=== PATIENT | female | born 1975 ===

== ENCOUNTER 2021-06-15 12:44 | Emergency (ER) | payer MEDICARE, SELFPAY ==
--- NOTE | ~2021-06-15 | XR_ITS ---
EXAMINATION: XR CHEST CLINICAL INFORMATION: Cough and chest tightness. COMPARISON: Chest 07/24/2019 TECHNIQUE: 2 views of the chest were obtained. FINDINGS: No significant abnormality is noted involving the heart, lungs, mediastinum, bony thorax or soft tissues. XR/XR chest 2V IMPRESSION: Unremarkable chest examination.
[2021-06-15 12:58] VITALS: BP 165/108; PULSE 88; RESP 16; TEMP 37.1; O2SAT 96; BMI 35.9
--- NOTE | 2021-06-15 15:15 | ED.URI ---
HPI - URI/Sore Throat General Chief Complaint: Upper Respiratory Symptoms Stated Complaint: flu like Time Seen by Provider: 06/15/21 13:48 History of Present Illness HPI Narrative: Patient complains of cough, chest tightness, body aches and some fatigue for 5 days, no shortness of breath no difficulty breathing no nausea or vomiting no fever chills Related Data Previous Rx's Medication Instructions Recorded albuterol sulfate 90 mcg/actuation 2 puff INHALATION Q4-6H PRN #6.7 g 06/15/21 aerosol inhaler (ProAir HFA) azithromycin 250 mg tablet 250 mg PO DAILY 5 Days #6 tab 06/15/21 (Zithromax Z-Roberto) prednisone 20 mg tablet 60 mg PO DAILY 3 Days #9 tab 06/15/21 Allergies Allergy/AdvReac Type Severity Reaction Status Date / Time No Known Allergies Allergy Unknown Verified 06/15/21 13:00 Review of Systems Review of Systems: Positive for cough fatigue and body aches Negatives are no fever no chills no dizziness no weakness no headache no neck pain no sore throat no chest pain no difficulty breathing no abdominal pain no nausea vomiting or diarrhea no dysuria no skin rash Yes all other systems are reviewed and are negative PMFSH Past Medical History Source: nursing notes reviewed Medical History (Updated 06/15/21 @ 15:19 by AMANDA Godinez) No known health problems Social History Social History Advance Directives: No Advance Directives Information Provided: Yes Patient : No Physical Exam Vital Signs: Vital Signs: Last Vital Signs Temp 98.7 F 06/15/21 12:58 Pulse 88 06/15/21 12:58 Resp 16 06/15/21 12:58 BP 165/108 H 06/15/21 12:58 Pulse Ox 96 06/15/21 12:58 Body Mass Index 35.9 General appearance is no acute distress The pharynx is clear Neck is supple Chest there is mild bilateral wheezing, good air movement, breath sounds do not have prolonged expiration, breath sounds are full and equal Heart no murmur The abdomen soft nontender Extremities no edema no calf tenderness no calf swelling Skin no rashes Course Course Course Narrative: Chest x-ray was negative Patient with mild wheezing is treated with prednisone and antibiotic for possible bronchitis and is well-appearing and is discharged COVID testing was negative MDM - URI/Sore Throat Lab Data Labs: Lab Results 06/15/21 Range/Units 14:09 Coronavirus (PCR) NEGATIVE (Negative) Influenza Type A (PCR) NEGATIVE (Negative) Influenza Type B (PCR) NEGATIVE (Negative) RSV RNA Qual (PCR) NEGATIVE (Negative) Discharge Plan Discharge Clinical Impression: Bronchitis Patient Disposition: Home, Self-Care Additional Instructions: We will call you with COVID test results later today at [phone] Your chest x-ray was normal We are treating bronchitis with antibiotic Zithromax If you feel chest tightness or shortness of breath use albuterol inhaler, we are doing several days of prednisone as well Return to the ER any time any worse condition or any concerns Prescriptions: New prednisone 20 mg tablet 60 mg PO DAILY 3 Days Qty: 9 RF: 0 albuterol sulfate [ProAir HFA] 90 mcg/actuation HFA aerosol inhaler 2 puff inhalation Q4-6H PRN (Reason: shortness of breath or wheezing) Qty: 6.7 RF: 0 azithromycin [Zithromax Z-Roberto] 250 mg tablet 250 mg PO DAILY 5 Days Qty: 6 RF: 0 Stand Alone Forms: Work/School Release Interventions: ED Discharge Assessment Last Done: 06/15/21 15:56 Discharge Date/Time: 06/15/21 15:57
[2021-06-15 15:27] LABS: Influenza A PCR NEGATIVE (Negative); Influenza B PCR NEGATIVE (Negative); Resp Syncy Virus RNA Qual PCR NEGATIVE (Negative); SARS COV2 PCR INHOUSE NEGATIVE (Negative)
== END 2021-06-15 15:57 | disposition home or self-care (01) ==
PROVIDERS: Physician Assistant; Emergency Provider Emergency Medicine; PCP Internal Medicine
DX: J40 Bronchitis, not specified as acute or chronic (principal); Z20.822 Contact with and (suspected) exposure to COVID-19; R53.83 Other fatigue; M79.10 Myalgia, unspecified site
CPT/HCPCS: 0241U; 36415; 71046; 99283

== ENCOUNTER 2021-10-26 16:33 | Emergency (ER) | payer MEDICARE, SELFPAY | END 2021-10-26 22:29 | disposition left against medical advice (07) | PROVIDERS: Emergency Provider Emergency Medicine; PCP Internal Medicine | DX: J02.9 Acute pharyngitis, unspecified (principal) ==

== ENCOUNTER 2022-05-30 16:38 | Emergency (ER) | payer MEDICARE, SELFPAY ==
[2022-05-30 16:49] VITALS: BP 172/102; PULSE 83; RESP 18; TEMP 36.8; O2SAT 100; BMI 37.2
--- NOTE | 2022-05-30 17:50 | ED.DENTAL ---
HPI - Dental/Oral General Chief complaint: Dental/Oral Stated complaint: tooth pain Time Seen by Provider: 05/30/22 17:49 History of Present Illness HPI Narrative: Patient complains of right upper molar pain which she has had for several weeks, her doctor referred her to an oral surgeon for root canal which is scheduled next week, she is taking amoxicillin but pain is still severe No trouble breathing or swallowing there is no swelling under the tongue no fever Related Data Previous Rx's Medication Instructions Recorded albuterol sulfate 90 mcg/actuation 2 puff inhalation Q4-6H PRN 06/15/21 aerosol inhaler (ProAir HFA) shortness of breath or wheezing #6.7 grams azithromycin 250 mg tablet 250 mg PO DAILY 5 days #6 tabs 06/15/21 (Zithromax Z-Roberto) prednisone 20 mg tablet 60 mg PO DAILY 3 days #9 tabs 06/15/21 acetaminophen 500 mg tablet 1,000 mg PO QID PRN pain #30 tabs 05/30/22 amoxicillin 875 mg-potassium 1 tab PO BID 7 days #14 tabs 05/30/22 clavulanate 125 mg tablet ibuprofen 600 mg tablet 600 mg PO Q6H PRN pain #20 tabs 05/30/22 oxycodone 10 mg tablet 10 mg PO Q6H PRN pain #14 tabs 05/30/22 Allergies Allergy/AdvReac Type Severity Reaction Status Date / Time No Known Allergies Allergy Unknown Verified 06/15/21 13:00 Review of Systems Review of Systems: Positive for right upper dental pain Negatives are no fever no chills no headache no dizziness no difficulty breathing or swallowing no swelling under the tongue denies any facial swelling denies any rash no sore throat no neck pain no chest pain no shortness of breath Yes all other systems are reviewed and are negative PMFSH Past Medical History Source: nursing notes reviewed Medical History (Updated 05/31/22 @ 00:02 by Aleks Dadarrel) No known health problems Social History Social History Advance Directives: No Advance Directives Information Provided: No Physical Exam Vital Signs: Vital Signs: Last Vital Signs Temp 98.2 F 05/30/22 16:49 Pulse 83 05/30/22 16:49 Resp 18 05/30/22 16:49 BP 172/102 H 05/30/22 16:49 Pulse Ox 100 05/30/22 16:49 O2 Del Method 05/30/22 16:49 BMI result Body Mass Index 37.2 General appearance no acute distress The head is normocephalic atraumatic The ears no redness or canal narrowing bilaterally, tympanic membranes intact Facial exam there is no redness or facial swelling Dental exam there is tenderness to the right upper molar which is decayed, there is no fluctuant abscess on the gum there is no swelling under the tongue there is no impairment of breathing or swallowing Pharynx no redness swelling or exudate, mucous membranes are moist Neck is supple Respiratory no distress Extremities full range of motion x4 Skin no rash Course Course Course Narrative: Well-appearing patient with a toothache, scheduled for extraction with oral surgeon next week is discharged with antibiotic and pain medicine Discharge Plan Discharge Clinical Impression: Dental caries Patient Disposition: Home, Self-Care Additional Instructions: Follow as scheduled for your root canal Return any time for fever, worse swelling, any difficulty breathing or swallowing, any worse condition or concerns Call the oral surgeon's office every day as they may have a cancellation and be able to get you in there before your appointment Prescriptions: New acetaminophen 500 mg tablet 1,000 mg PO QID PRN (Reason: pain) Qty: 30 0RF oxycodone 10 mg tablet 10 mg PO Q6H PRN (Reason: pain) Qty: 14 0RF Rx Instructions: Partial Fill upon patient request. Narcotic, no driving for 6 hours after taking this medication amoxicillin-pot clavulanate 875-125 mg tablet 1 tab PO BID 7 Days Qty: 14 0RF ibuprofen 600 mg tablet 600 mg PO Q6H PRN (Reason: pain) Qty: 20 0RF No Action prednisone 20 mg tablet 60 mg PO DAILY 3 Days Qty: 9 0RF albuterol sulfate [ProAir HFA] 90 mcg/actuation HFA aerosol inhaler 2 puff inhalation Q4-6H PRN (Reason: shortness of breath or wheezing) Qty: 6.7 0RF azithromycin [Zithromax Z-Roberto] 250 mg tablet 250 mg PO DAILY 5 Days Qty: 6 0RF Rx Instructions: Two tablets 1st dose, 500 mg followed by 1 tablet 250 mg a day for 4 days Interventions: ED Discharge Assessment Last Done: 05/30/22 18:07 Discharge Date/Time: 05/30/22 18:09
== END 2022-05-30 18:09 | disposition home or self-care (01) ==
PROVIDERS: Emergency Provider Internal Medicine
DX: K02.9 Dental caries, unspecified (principal); K08.89 Other specified disorders of teeth and supporting structures
CPT/HCPCS: 99282; 99283

== ENCOUNTER → 2022-08-21 12:34 | Outpatient (BNVA) | payer OTHER, SELFPAY | PROVIDERS: Visit Provider Dietitian, Registered | DX: E66.9 Obesity, unspecified (principal); Z68.37 Body mass index [BMI] 37.0-37.9, adult | CPT/HCPCS: 97802 ==

== ENCOUNTER → 2022-12-01 12:30 | Outpatient (BNVA) | payer OTHER, SELFPAY | PROVIDERS: PCP Physician Assistant; Visit Provider Dietitian, Registered | DX: E66.9 Obesity, unspecified (principal); Z68.34 Body mass index [BMI] 34.0-34.9, adult | CPT/HCPCS: 97803 ==

== ENCOUNTER 2024-03-09 11:09 | Emergency (ER) | payer OTHER, SELFPAY ==
--- NOTE | ~2024-03-09 | XR_ITS ---
EXAMINATION: XR CHEST 2 VIEW CLINICAL INFORMATION: Cough COMPARISON: 06/15/2021 TECHNIQUE: PA and lateral views of the chest obtained. FINDINGS: The lungs are clear. There are no pleural effusions. The cardiomediastinal silhouette is normal. XR/XR chest 2V IMPRESSION: No acute cardiopulmonary disease.
[2024-03-09 12:00] VITALS: BP 149/92; PULSE 106; RESP 18; TEMP 36.5; O2SAT 96; BMI 36.4
[2024-03-09 12:59] LABS: Influenza A PCR NEGATIVE (Negative); Influenza B PCR NEGATIVE (Negative); Resp Syncy Virus RNA Qual PCR NEGATIVE (Negative); SARS COV2 PCR INHOUSE NEGATIVE (Negative)
--- NOTE | 2024-03-09 14:40 | ED.GENADULT ---
HPI - General Adult General Chief complaint: Upper Respiratory Symptoms Stated complaint: SOB/Fever/Vomiting/Cough Time Seen by Provider: 03/09/24 14:39 Source: patient and site interpreter (all interactions with this patient were facilitated with an [facility] [place] sign language interpreter) Mode of arrival: ambulatory Limitations: language barrier (all interactions with this patient were facilitated with an [facility] [place] sign language interpreter) History of Present Illness HPI narrative: Patient is a 48 year old assigned female at with a history of DM presenting to the emergency department today with cough and nasal congestion. Patient states that over the last 4 days she has had nasal congestion and worsening cough. Patient denies any dizziness, lightheadedness, abdominal pain, nausea, vomiting, fever, chills, blurry vision, double vision, loss of vision, chest pain, difficulty breathing, shortness of breath, back pain, night sweats, pain with urination, increased urinary frequency, increased urinary urgency, blood in her urine or stool, syncope or a near syncopal episode, recent trauma or falls, bowel incontinence, bladder incontinence, bowel retention, bladder retention, or any other complaints at this time. Onset (ago): day(s) (4) Severity: mild Severity scale (1-10): 4 Relieving factors: none Exacerbating factors: none Associated symptoms: cough Treatments prior to arrival: other (OTC cold medicine) Related Data Previous Rx's ?Medication ?Instructions ?Recorded albuterol sulfate 90 mcg/actuation 2 puff inhalation Q4-6H PRN 06/15/21 aerosol inhaler (ProAir HFA) shortness of breath or wheezing #6.7 grams azithromycin 250 mg tablet 250 mg PO DAILY 5 days #6 tabs 06/15/21 (Zithromax Z-Roberto) prednisone 20 mg tablet 60 mg (3 x 20 mg) PO DAILY 3 days 06/15/21 #9 tabs acetaminophen 500 mg tablet 1,000 mg (2 x 500 mg) PO QID PRN 05/30/22 pain #30 tabs amoxicillin 875 mg-potassium 1 tab PO BID 7 days #14 tabs 05/30/22 clavulanate 125 mg tablet ibuprofen 600 mg tablet 600 mg PO Q6H PRN pain #20 tabs 05/30/22 oxycodone 10 mg tablet 10 mg PO Q6H PRN pain #14 tabs 05/30/22 albuterol sulfate 90 mcg/actuation 1 inh inhalation QID PRN shortness 03/09/24 aerosol inhaler of breath or wheezing #8.5 grams benzonatate 100 mg capsule 100 mg PO BID PRN cough 7 days #14 03/09/24 caps doxycycline hyclate 100 mg tablet 100 mg PO BID 7 days #14 tabs 03/09/24 Allergies Allergy/AdvReac Type Severity Reaction Status Date / Time No Known Allergies Allergy Unknown Verified 03/09/24 12:01 Review of Systems Constitutional: Constitutional: Reports no additional constitutional complaints, Denies chills, Denies fever(s) and Denies night sweats Eyes: Eyes: Reports no additional eye complaints, Denies blurry vision, Denies change in vision, Denies diplopia, Denies eye discharge, Denies loss of vision and Denies eye pain ENT: Denies dizziness Comments: nasal congestion Cardiovascular: Cardiovascular: Reports no additional cardiovascular complaints, Denies chest pain, Denies lightheadedness, Denies Loss of Consciousness and Denies dyspnea Respiratory: Respiratory: Reports no additional respiratory complaints, Reports cough and Denies dyspnea Gastrointestinal: Gastrointestinal: Reports no additional gastrointestinal complaints, Denies abdominal pain, Denies melena, Denies hematochezia, Denies change in bowel habits and Denies change in stool character Genitourinary: Genitourinary: Denies hematuria, Denies urinary frequency, Denies dysuria, Denies urinary incontinence, Denies urinary hesitancy and Denies urinary urgency Musculoskeletal: Musculoskeletal: Reports no additional musculoskeletal complaints, Denies numbness and Denies tingling Neurologic: Denies dizziness, Denies loss of vision, Denies numbness and Denies tingling Psychiatric: Psychiatric: Reports no additional psychiatric complaints Endocrine: Endocrine: Reports no additional endocrine complaints Hematologic/Lymphatic: Hematologic/Lymphatic: Reports no additional hematologic/lymphatic complaints Allergic/Immunologic: Allergic/Immunologic: Reports no additional allergic/immunologic complaints PMFSH Past Medical History Attestation statement: The following information was validated with the patient. Source: old records reviewed and nursing notes reviewed Medical History No known health problems Social History Social History Advance Directives: No Advance Directives Information Provided: No Do you have a plan to hurt others: No Plan Physical Exam ED Vital Signs: Vital Signs - 24 hr 03/09/24 15:03 Temperature 97.7 F Pulse Rate 106 H Respiratory Rate 18 Blood Pressure 149/92 H Pulse Oximetry 96 Oxygen Delivery Method Room Air BMI result Body Mass Index 36.4 Const General: cooperative, no acute distress, alert and awake Nutritional Appearance: well nourished Orientation/consciousness: patient oriented x3 Limitations: no limitations HENMT Head: Yes normal to inspection and Yes atraumatic Ears: hearing grossly normal bilaterally and external ears normal General nose exam: Normal external nose present, no nasal discharge noted and no epistaxis Face and sinus: Yes normal facial exam, No abrasion and No laceration Mouth: Normal oral and palatal mucosa present, no drooling and no muffled voice Eyes General: appearance normal, both eyes and all related structures Periorbital: periorbital findings normal Eyelids: Yes eyelids normal Conjunctivae: conjunctivae normal Pupils: Equal, round and reactive pupils present EOM: EOMs intact bilaterally Neck Neck: Yes normal visual inspection, Yes full ROM and Yes no lymphadenopathy Chest Chest palpation & inspection: normal inspection of the chest Resp Effort & Inspection: normal respiratory effort and able to speak in complete sentences GI Inspection: Yes normal to inspection Neuro General: patient oriented x3 and moves all extremities Cranial nerves: Yes Equal, round and reactive pupils present Cognition (Neuro): normal cognition Motor exam (neuro): 5/5 motor strength present throughout Sensory Exam: Normal double simultaneous stimulation for sensation Coordination: [id number] test normal Extrem General: Yes normal to inspection, Yes full ROM and Yes capillary refill normal Psych Appearance: grossly normal Mental Status: mental status grossly normal Affect: normal affect Attitude: cooperative Thought process: Normal thought process present Thought content: Normal thought content present Insight: Good insight present (Psych) Medical Decision Making Medical Decision Making MDM Narrative: Patient is a 48 year old assigned female at with a history of DM presenting to the emergency department today with nasal congestion and a cough. Patient's physical exam was unremarkable. Patient's COVID-19, influenza, and RSV tests were negative. Patient's chest x-ray showed no acute process. I explained my physical exam findings as well as all test results to the patient. I answered all questions asked by the patient. I stressed the importance of the patient taking her medication as prescribed. I stressed the importance of the patient following up with her primary care provider. I stressed the importance of the patient returning to the emergency department immediately if her symptoms were to worsen or if she were to develop any dizziness, shortness of breath, difficulty breathing, chest pain, blurry vision, loss of vision, nausea, vomiting, abdominal pain, fever, chills, back pain, or any other complaints. Patient verbalized agreement and understanding with this treatment plan and discharge. Differential Diagnosis Differential Diagnoses: The differential diagnosis associated with the presentation includes Nasal congestion Cough URI Sinusitis Viral illness COVID-19 Influenza RSV Admission/Observation Consideration of admission/observation: Escalation of care including admission/observation considered Patient would have been admitted to the hospital had her work up had any findings where hospital admission was appropriate and her clinical presentation warranted hospital admission. Lab Data MDM Lab Attestation statement: I reviewed the patient's lab results. My interpretation of these studies and their corresponding values is that they are grossly normal. Labs: Lab Results 03/09/24 Range/Units 12:18 Influenza Type A (PCR) NEGATIVE (Negative) Influenza Type B (PCR) NEGATIVE (Negative) RSV RNA Qual (PCR) NEGATIVE (Negative) SARS-CoV-2 RNA (RT-PCR) NEGATIVE (Negative) Independent Interpretation I performed an independent interpretation of an: Plain X-Ray Interpretation: My interpretation is in agreement with the radiologist's impression of this imaging study. EXAMINATION: XR CHEST 2 VIEW CLINICAL INFORMATION: Cough COMPARISON: 06/15/2021 TECHNIQUE: PA and lateral views of the chest obtained. FINDINGS: The lungs are clear. There are no pleural effusions. The cardiomediastinal silhouette is normal. XR/XR chest 2V IMPRESSION: No acute cardiopulmonary disease. Dictated By: Jaciel Hinkle MD Signed By: Electronically signed by Jaciel Hinkle MD 03/09/24 1218 Radiology Impression Discussion of test interpretation with radiology: I have reviewed the radiologist's reading. Prescription Management I considered prescription management with: Antibiotic (given patient's comorbidities and clinical presentation - prescribed an antibiotic for sinusitis) Chronic Conditions Patient?s care impacted by: Diabetes Discharge Plan Discharge Clinical Impression: Upper respiratory infection, Sinusitis Patient Disposition: Home, Self-Care Instructions: Sinusitis (ED), Upper Respiratory Infection (DC) Additional Instructions: Take your medication as prescribed. Follow up with your primary care provider. Return to the emergency department immediately if your symptoms worsen or if you develop any dizziness, shortness of breath, difficulty breathing, chest pain, blurry vision, loss of vision, nausea, vomiting, abdominal pain, fever, chills, back pain, or any other complaints. Prescriptions: New benzonatate 100 mg capsule 100 mg PO BID PRN (Reason: cough) 7 Days Qty: 14 0RF doxycycline hyclate 100 mg tablet 100 mg PO BID 7 Days Qty: 14 0RF albuterol sulfate 90 mcg/actuation HFA aerosol inhaler 1 inh inhalation QID PRN (Reason: shortness of breath or wheezing) Qty: 8.5 0RF No Action prednisone 20 mg tablet 60 mg PO DAILY 3 Days Qty: 9 0RF albuterol sulfate [ProAir HFA] 90 mcg/actuation HFA aerosol inhaler 2 puff inhalation Q4-6H PRN (Reason: shortness of breath or wheezing) Qty: 6.7 0RF azithromycin [Zithromax Z-Roberto] 250 mg tablet 250 mg PO DAILY 5 Days Qty: 6 0RF Rx Instructions: Two tablets 1st dose, 500 mg followed by 1 tablet 250 mg a day for 4 days acetaminophen 500 mg tablet 1,000 mg PO QID PRN (Reason: pain) Qty: 30 0RF oxycodone 10 mg tablet 10 mg PO Q6H PRN (Reason: pain) Qty: 14 0RF Rx Instructions: Partial Fill upon patient request. Narcotic, no driving for 6 hours after taking this medication amoxicillin-pot clavulanate 875-125 mg tablet 1 tab PO BID 7 Days Qty: 14 0RF ibuprofen 600 mg tablet 600 mg PO Q6H PRN (Reason: pain) Qty: 20 0RF Referrals: [facility] [place] [facility] [Provider Group] (Call to establish and follow up with a primary care provider. If you already have a primary care provider, please follow up with them.) [facility] [place] [facility] [Provider Group] [facility] [place] [facility] [Provider Group] Stand Alone Forms: Work/School Release Interventions: ED Discharge Assessment Last Done: 03/09/24 15:03 Discharge Date/Time: 03/09/24 15:04 Print Language: Kinyarwanda
[2024-03-09 15:03] VITALS: BP 149/92; PULSE 106; RESP 18; TEMP 36.5; O2SAT 96
== END 2024-03-09 15:04 | disposition home or self-care (01) ==
PROVIDERS: Emergency Provider Emergency Medicine
DX: J06.9 Acute upper respiratory infection, unspecified (principal); R06.02 Shortness of breath; R05.9 Cough, unspecified; R11.2 Nausea with vomiting, unspecified; Z11.52 Encounter for screening for COVID-19; Z20.822 Contact with and (suspected) exposure to COVID-19; Z79.899 Other long term (current) drug therapy
CPT/HCPCS: 0241U; 71046; 99283; 99284

== ENCOUNTER 2024-06-03 23:11 | Day surgery (SDC) | payer OTHER, SELFPAY ==
--- NOTE | ~2024-06-03 | US_ITS ---
EXAMINATION: US ABDOMEN LIMITED CLINICAL INFORMATION: Right upper quadrant pain and tenderness. COMPARISON: 05/21/2020 TECHNIQUE: Real-time imaging of the right upper quadrant abdominal viscera. FINDINGS: PANCREAS: The visualized proximal portion of the pancreas is unremarkable. The distal portion is obscured secondary to overlying bowel gas. LIVER: The liver is normal in size. The liver contour is normal. There is increased liver parenchymal echogenicity, consistent with hepatic steatosis with focal sparing noted. No focal hepatic lesion. There is no intrahepatic biliary duct dilatation seen. GALLBLADDER: Gallbladder is physiologically distended. A proximal gallstone is identified in the region of the neck, possibly impacted. Gallbladder wall thickness is within normal limits. No pericholecystic fluid is seen. Per technologist report, right upper quadrant tenderness was reported during the exam. COMMON BILE DUCT: Normal in caliber measuring 0.4 cm in diameter. RIGHT KIDNEY: No hydronephrosis. No renal calculi or focal parenchymal lesions. The kidney measures 11.5 cm in maximum dimension. FREE FLUID: None. US/US abdomen limited IMPRESSION: 1. Cholelithiasis without gallbladder wall thickening, though right upper quadrant tenderness was reported during the exam. The gallstone at the neck may be impacted, and if clinically warranted, nuclear medicine hepatobiliary scan may provide more specific evaluation for potential cholecystitis. 2. Hepatic steatosis.
[2024-06-03 23:19] VITALS: BP 148/93; PULSE 80; RESP 16; TEMP 36.2; O2SAT 99; BMI 35.4
[2024-06-03 23:40] LABS: MANUAL DIFF FLAG NO
[2024-06-03 23:42] LABS: Basophils Absolute Auto 0.1 X10*3/uL (0.0-0.2); Basophils Percent Auto 0.5 % (0-2); Eosinophils Absolute Auto 0.1 X10*3/uL (0.0-0.4); Hemoglobin 12.6 g/dl (12.0-16.0); Imm Gran Abs Auto 0.03 X10*3/uL (0.00-0.03); Imm Gran Pct Auto 0.3 % (0.0-0.4); Lymphocytes Percent Auto 43.1 % (20-40); Mean Corpuscular HGB Conc 34.1 g/dl (31.0-35.0); Mean Corpuscular Hemoglobin 29.7 pg (27.0-33.0); Mean Corpuscular Volume 87.3 fL (80.0-98.0); Mean Platelet Volume 9.7 fL (9.4-12.3); Monocytes Absolute Auto 0.6 X10*3/uL (0.1-1.2); Monocytes Percent Auto 5.3 % (2-11); Neutrophils Absolute Auto 5.8 x10*3/uL (2.0-8.3); Neutrophils Percent Auto 49.8 % (45-73); Platelet Count 295 X10*3/uL (160-400); Red Blood Count 4.24 X10*6/uL (4.20-5.50); Red Cell Distribution Width 13.2 % (11.0-16.0); White Blood Count 11.6 X10*3/uL (4.8-10.8)
[2024-06-03 23:47] LABS: Appearance Urine Clear; Color Urine Yellow; Glucose Urine UA Negative (Negative); Leukocyte Esterase Urine Negative (Negative); Nitrite Urine Negative (Negative); PH 5.5 (5.0-9.0); Specific Gravity - Urine 1.025 (1.005-1.025); Urine Blood Negative (Negative); Urine Ketones Negative (Negative); Urine Protein Negative (Neg-Trace)
[2024-06-03 23:49] LABS: Bacteria Urine Trace (None Seen); Hyaline Casts Urine 0-2 /LPF (0-2); RBC Urine 0-2 /HPF (0-2); WBC Urine 0-5 /HPF (0-5)
[2024-06-04] VITALS (11 sets, daily range): BP systolic 126–159; BP diastolic 71–101; PULSE 71–85; RESP 12–18; TEMP 36.2–36.9; O2SAT 85–98
[2024-06-04 00:07] LABS: Alanine Aminotransferase 17 U/L (0-31); Albumin Level 4.2 g/dL (3.5-5.0); Alkaline Phosphatase 71 U/L (39-117); Anion Gap 13 (12-20); Aspartate Amino Transferase 13 U/L (5-31); Bilirubin Total 0.5 mg/dL (0.0-1.0); Blood Urea Nitrogen 17 mg/dL (9-16); Calcium 9.1 mg/dL (8.4-10.2); Carbon Dioxide 24 mmol/L (22-29); Chloride 108 mmol/L (96-108); Estimated Glomerular Filt Rate > 60; Glucose Random 167 mg/dL (60-115); Lipase 21 U/L (8-78); Potassium 3.6 mmol/L (3.3-5.1); Sodium 141 mmol/L (135-145); Total Protein 7.1 g/dL (6.5-8.0)
--- NOTE | 2024-06-04 04:02 | ED.GENADULT ---
HPI - General Adult General Chief complaint: Abdominal Pain Stated complaint: rt flank pain x 5 days Time Seen by Provider: 06/04/24 04:02 History of Present Illness ED Provider: Suhail DAVILA narrative: The patient is a 48-year-old woman who has had right-sided pain for about 4 or 5 days. She says the pain began on Thursday. The pain is worse when she takes a deep breath. She has also had some nausea and decreased oral intake because of lack of appetite. Doctor's office and says she had a negative chest x-ray. She comes to the emergency room because of the persistence of this pain. No definite fever, sweats, chills. The patient has a history of hysterectomy. Related Data Previous Rx's ?Medication ?Instructions ?Recorded albuterol sulfate 90 mcg/actuation 2 puff inhalation Q4-6H PRN 06/15/21 aerosol inhaler (ProAir HFA) shortness of breath or wheezing #6.7 grams azithromycin 250 mg tablet 250 mg PO DAILY 5 days #6 tabs 06/15/21 (Zithromax Z-Roberto) prednisone 20 mg tablet 60 mg (3 x 20 mg) PO DAILY 3 days 06/15/21 #9 tabs acetaminophen 500 mg tablet 1,000 mg (2 x 500 mg) PO QID PRN 05/30/22 pain #30 tabs amoxicillin 875 mg-potassium 1 tab PO BID 7 days #14 tabs 05/30/22 clavulanate 125 mg tablet ibuprofen 600 mg tablet 600 mg PO Q6H PRN pain #20 tabs 05/30/22 oxycodone 10 mg tablet 10 mg PO Q6H PRN pain #14 tabs 05/30/22 albuterol sulfate 90 mcg/actuation 1 inh inhalation QID PRN shortness 03/09/24 aerosol inhaler of breath or wheezing #8.5 grams benzonatate 100 mg capsule 100 mg PO BID PRN cough 7 days #14 03/09/24 caps doxycycline hyclate 100 mg tablet 100 mg PO BID 7 days #14 tabs 03/09/24 Allergies Allergy/AdvReac Type Severity Reaction Status Date / Time No Known Allergies Allergy Unknown Verified 06/03/24 23:20 Review of Systems Review of Systems: Yes all other systems are reviewed and are negative [facility] Past Medical History Medical History No known health problems Social History Social History Smoked in Last 30 Days: No Use of substances other than those prescribed or required for medical reasons: Yes Substance Use Type: Marijuana Advance Directives: No Advance Directives Information Provided: Yes Do you have a plan to hurt others: No Plan Patient : No Physical Exam ED Vital Signs: Vital Signs - 24 hr 06/03/24 23:19 06/04/24 02:29 06/04/24 05:33 Temperature 97.1 F 98.1 F 98.4 F Pulse Rate 80 77 71 Respiratory Rate 16 16 16 Blood Pressure 148/93 H 126/71 139/93 H Pulse Oximetry 99 97 98 Oxygen Delivery Method Room Air Room Air Room Air 06/04/24 06:00 Temperature 97.9 F Pulse Rate 80 Respiratory Rate 18 Blood Pressure 134/101 H Pulse Oximetry 98 Oxygen Delivery Method Room Air BMI result Body Mass Index 35.4 Const Other: The patient is awake and alert, pleasant and cooperative. She looks mildly uncomfortable but not acutely toxic. HENMT Other: Face is symmetrical, mucous membranes moist. Eyes Other: Pupils are round equal, conjunctivae are clear, extraocular movements intact Neck Neck: Yes no JVD Resp Effort & Inspection: normal respiratory effort Auscultation: clear to auscultation bilaterally Cardio Rate: regular rate Rhythm: regular rhythm Heart sounds: S1 normal heart sound present and S2 normal heart sound present GI Other: The patient is tender in the right upper quadrant with possible Carmen's sign Back/Spine/Pelvis Other: No CVA percussion tenderness Skin Other: Skin is dry and unremarkable Neuro Other: The patient is awake and alert with a normal mental status. Cranial nerves are grossly intact. She moves all 4 extremities symmetrically and appropriately. Gait is normal. She is grossly neurologically intact. Extrem Other: No peripheral edema, no calf swelling or tenderness, no asymmetry Medications Administered Discontinued Medications Generic Name Dose Route Start Last Admin Trade Name Freq PRN Reason Stop Dose Admin Sodium Chloride 1,000 mls @ 999 mls/hr 06/04/24 06:30 06/04/24 06:52 Ns IV 06/04/24 07:30 999 mls/hr .Q1H1M SOPHIA Administration Morphine Sulfate 4 mg 06/04/24 06:29 06/04/24 06:50 Morphine Sulfate 4 Mg/Ml Cartridge IVPUSH 06/04/24 06:30 4 mg ONCE ONE Administration Protocol Medical Decision Making Medical Decision Making [facility] Narrative: The patient is 48-year-old woman who presents with right-sided pain that has been present for about 4 or 5 days. She indicates the pain being essentially at the border between the abdomen and then the thorax on the right side anteriorly. She has an unremarkable EKG, negative troponin, undetectable D-dimer. CRP is normal, On exam she seemed tender in the right upper quadrant. An ultrasound was obtained that seems to show an impacted, nonmobile gallstone in the neck of the gallbladder associated with a sonographic Carmen's sign. I consulted Dr. Roper of General surgery and the patient will be admitted to the surgical service. Lab Data 06/03/24 23:35 06/03/24 23:35 Labs: Lab Results 06/03/24 06/03/24 06/04/24 Range/Units 23:35 23:41 05:26 WBC 11.6 H (4.8-10.8) X10*3/uL RBC 4.24 (4.20-5.50) X10*6/uL Hgb 12.6 (12.0-16.0) g/dl Hct 37.0 (37.0-47.0) % MCV 87.3 (80.0-98.0) fL MCH 29.7 (27.0-33.0) pg MCHC 34.1 (31.0-35.0) g/dl RDW 13.2 (11.0-16.0) % Plt Count 295 (160-400) X10*3/uL MPV 9.7 (9.4-12.3) fL Immature Gran % (Auto) 0.3 (0.0-0.4) % Neut % (Auto) 49.8 (45-73) % Lymph % (Auto) 43.1 H (20-40) % [place] % (Auto) 5.3 (2-11) % Eos % (Auto) 1.0 (0-4) % Baso % (Auto) 0.5 (0-2) % Lymph # (Auto) 5.0 H (1.2-4.9) X10*3/uL [place] # (Auto) 0.6 (0.1-1.2) X10*3/uL Eos # (Auto) 0.1 (0.0-0.4) X10*3/uL Baso # (Auto) 0.1 (0.0-0.2) X10*3/uL Abs Immat Gran (auto) 0.03 (0.00-0.03) X10*3/uL Absolute Neuts (auto) 5.8 (2.0-8.3) x10*3/uL Absolute Nucleated RBC 0.000 (0.0-0.012) X10*3/uL Nucleated RBC % (auto) 0.0 (0.0-0.2) /100WBC D-Dimer High Sensitivty < 150 NG/ML Sodium 141 (135-145) mmol/L Potassium 3.6 (3.3-5.1) mmol/L Chloride 108 (96-108) mmol/L Carbon Dioxide 24 (22-29) mmol/L Anion Gap 13 (12-20) BUN 17 H (9-16) mg/dL Creatinine 0.72 (0.5-1.4) mg/dL Estim Creat Clear Calc 101.0 Estimated GFR > 60 Random Glucose 167 H (60-115) mg/dL Calcium 9.1 (8.4-10.2) mg/dL Total Bilirubin 0.5 (0.0-1.0) mg/dL AST 13 (5-31) U/L ALT 17 (0-31) U/L Alkaline Phosphatase 71 (39-117) U/L Troponin I High Sens < 2.7 (<3.5-17.0) ng/L C-Reactive Protein 0.47 (< or = 0.50) mg/dL Total Protein 7.1 (6.5-8.0) g/dL Albumin 4.2 (3.5-5.0) g/dL Lipase 21 (8-78) U/L Urine Color Yellow Urine Appearance Clear Urine pH 5.5 (5.0-9.0) Ur Specific [place] 1.025 (1.005-1.025) Urine Protein Negative (Neg-Trace) mg/dL Urine Glucose (UA) Negative (Negative) mg/dL Urine Ketones Negative (Negative) mg/dL Urine Blood Negative (Negative) Urine Nitrite Negative (Negative) Ur Leukocyte Esterase Negative (Negative) Urine RBC 0-2 (0-2) /HPF Urine WBC 0-5 (0-5) /HPF Ur Squamous Epith Cells 6-10 (0-2) /HPF Urine Bacteria Trace (None Seen) Hyaline Casts 0-2 (0-2) /LPF Discharge Plan Discharge Patient Disposition: Admitted As Inpatient Prescriptions: No Action prednisone 20 mg tablet 60 mg PO DAILY 3 Days Qty: 9 0RF albuterol sulfate [ProAir HFA] 90 mcg/actuation HFA aerosol inhaler 2 puff inhalation Q4-6H PRN (Reason: shortness of breath or wheezing) Qty: 6.7 0RF azithromycin [Zithromax Z-Roberto] 250 mg tablet 250 mg PO DAILY 5 Days Qty: 6 0RF Rx Instructions: Two tablets 1st dose, 500 mg followed by 1 tablet 250 mg a day for 4 days acetaminophen 500 mg tablet 1,000 mg PO QID PRN (Reason: pain) Qty: 30 0RF oxycodone 10 mg tablet 10 mg PO Q6H PRN (Reason: pain) Qty: 14 0RF Rx Instructions: Partial Fill upon patient request. Narcotic, no driving for 6 hours after taking this medication amoxicillin-pot clavulanate 875-125 mg tablet 1 tab PO BID 7 Days Qty: 14 0RF ibuprofen 600 mg tablet 600 mg PO Q6H PRN (Reason: pain) Qty: 20 0RF benzonatate 100 mg capsule 100 mg PO BID PRN (Reason: cough) 7 Days Qty: 14 0RF doxycycline hyclate 100 mg tablet 100 mg PO BID 7 Days Qty: 14 0RF albuterol sulfate 90 mcg/actuation HFA aerosol inhaler 1 inh inhalation QID PRN (Reason: shortness of breath or wheezing) Qty: 8.5 0RF Print Language: Chinese
--- NOTE | 2024-06-04 04:23 | ECG_ITS ---
Test Reason : RIGHT SIDED CHEST PAIN Blood Pressure : / mmHG Vent. Rate : 071 BPM Atrial Rate : 071 BPM P-R Int : 162 ms QRS Dur : 078 ms QT Int : 418 ms P-R-T Axes : 023 073 046 degrees QTc Int : 454 ms Normal sinus rhythm Normal ECG When compared with ECG of 24-JUL-2019 20:34, Questionable change in QRS axis Referred By: Feliz Jang Electronically Signed By:Pedro Luis Damon
[2024-06-04 04:29] LABS: C Reactive Protein 0.47 mg/dL (< or = 0.50)
[2024-06-04 04:52] LABS: Troponin-I High Sensitivity < 2.7 ng/L (<3.5-17.0)
[2024-06-04 06:22] LABS: D Dimer High Sensitivity < 150 NG/ML
[2024-06-04] MEDS: Morphine Sulfate 4 MG/ML CARTRIDGE IVPUSH (06:50)
[2024-06-04] MEDS: 0.9 % Sodium Chloride 1,000 ML 999 ML IV (06:52)
--- NOTE | 2024-06-04 06:53 | PC.NURSE ---
Pt medicated per [facility] Plan of care ongoing.
--- NOTE | 2024-06-04 08:16 | PM.HPGS ---
History of Present Illness History of Present Illness Date of Service: 06/04/24 Chief complaint: rt flank pain x 5 days Narrative: Candi Holman is a 48 year old female presenting with complaints of abdominal pain in the right upper quadrant since Thursday (05/31/2024). The abdominal pain was preceded with 3 day history of diarrhea which did not resolve with Kaopectate. The pain began in the right upper quadrant and radiated into the back, and was initially mild but has increased in severity over the following 3 days. She subsequently presented to the emergency department yesterday (06/03/2024) due to the persistence. She reports nausea but denies vomiting. She denies fever or chills. Her past medical history is significant for diabetes mellitus. She was evaluated by her primary care and a chest x-ray ordered which was normal. Initial evaluation in the emergency department confirmed tenderness in the right upper quadrant with a positive Carmen sign. Laboratories revealed an elevated WBC of 11.6. Ultrasound of the abdomen revealed cholelithiasis without gallbladder wall thickening the right upper quadrant tenderness was reported during the examination. Gallstone at the neck appears to be impacted. Findings were suggestive of acute cholecystitis. Review of Systems Review of Systems: Yes all other systems are reviewed and are negative Constitutional: Constitutional: Denies chills, Denies fever(s), Denies headache(s), Reports poor appetite and Denies weakness ENT: Denies headache(s) Cardiovascular: Cardiovascular: Denies chest pain, Denies irregular heart rhythm, Denies palpitations and Denies dyspnea Respiratory: Respiratory: Denies cough, Denies excessive phlegm production and Denies dyspnea Gastrointestinal: Gastrointestinal: Reports abdominal pain, Denies bloating, Denies change in bowel habits, Denies constipation, Denies heartburn, Reports diarrhea, Reports nausea and Denies vomiting Genitourinary: Genitourinary: Denies urinary frequency Musculoskeletal: Musculoskeletal: Denies back pain, Denies muscle weakness and Denies numbness Integumentary/Breasts: Skin/Breast: Denies changing lesions and Denies unusual bruising Neurologic: Denies headache(s), Denies numbness, Denies paresthesias and Denies weakness Psychiatric: Psychiatric: Denies anxiety and Denies depression Endocrine: Endocrine: Denies palpitations Hematologic/Lymphatic: Hematologic/Lymphatic: Denies lymphadenopathy [facility] Past Medical History Medical History (Updated 06/04/24 @ 08:21 by Robin Roper MD) No known health problems Surgical History Surgical History (Updated 06/04/24 @ 08:21 by Robin Roper MD) H/O: hysterectomy Social History Social History Smoked in Last 30 Days: No Use of substances other than those prescribed or required for medical reasons: Yes Substance Use Type: Marijuana Advance Directives: No Advance Directives Information Provided: Yes Do you have a plan to hurt others: No Plan Patient : No Meds Allergies Allergy/AdvReac Type Severity Reaction Status Date / Time No Known Allergies Allergy Unknown Verified 06/03/24 23:20 Active Medications: Current Medications Lactated Ringer's (Lr) 1,000 mls @ 100 mls/hr IVCONT .Q10H SOPHIA Cefotetan Disodium 2 gm/ (Sodium Chloride) 50 mls @ 100 mls/hr IV PREOP ONE Stop: 06/04/24 08:43 Physical Exam Vital Signs: Vital Signs: Last Vital Signs Temp 97.9 F 06/04/24 06:00 Pulse 80 06/04/24 06:00 Resp 18 06/04/24 06:00 BP 134/101 H 06/04/24 06:00 Pulse Ox 98 06/04/24 06:00 O2 Del Method Room Air 06/04/24 06:00 BMI result Body Mass Index 35.4 Const: General: cooperative and no acute distress Nutritional Appearance: well nourished Orientation/consciousness: patient oriented x3 Limitations: no limitations HEENT: Head: Yes normocephalic and Yes atraumatic Ears: hearing grossly normal bilaterally Resp: Effort & Inspection: normal respiratory effort, no audible wheezes, no cough and no respiratory distress Cardio: Jugular venous distension: no JVD GI: Inspection: Yes normal to inspection Palpation (GI): Soft to palpation, Tenderness to palpation present (GI) in the RUQ and Carmen's sign positive, no guarding and not rigid Percussion: Yes normal to percussion Auscultation: normal bowel sounds Skin: Other: Warm, dry, no rash Neuro: General: patient oriented x3 Extrem: General: Yes normal to inspection and Yes no clubbing, cyanosis or edema Results Results Labs: Short CBC 06/03/24 Range/Units 23:35 WBC 11.6 H (4.8-10.8) X10*3/uL Hgb 12.6 (12.0-16.0) g/dl Hct 37.0 (37.0-47.0) % Plt Count 295 (160-400) X10*3/uL BMP 06/03/24 23:35 Sodium 141 Potassium 3.6 Chloride 108 Carbon Dioxide 24 BUN 17 H Creatinine 0.72 Calcium 9.1 Liver Function 06/03/24 Range/Units 23:35 Total Bilirubin 0.5 (0.0-1.0) mg/dL AST 13 (5-31) U/L ALT 17 (0-31) U/L Alkaline Phosphatase 71 (39-117) U/L Albumin 4.2 (3.5-5.0) g/dL Urine 06/03/24 Range/Units 23:41 Urine Color Yellow Urine Appearance Clear Urine pH 5.5 (5.0-9.0) Ur Specific [place] 1.025 (1.005-1.025) Urine Protein Negative (Neg-Trace) mg/dL Urine Glucose (UA) Negative (Negative) mg/dL Assessment and Plan (1) Acute cholecystitis: Status: Acute Plan 48-year-old female patient with a 4 day history of abdominal pain in the right upper quadrant associated with nausea and diarrhea. Workup reveals an impacted gallstone within the gallbladder with tenderness on palpation of the gallbladder suggestive of acute cholecystitis. I recommended laparoscopic or possible open cholecystectomy and after discussion of the procedure, risks, and alternatives, she consents to the surgery. She has been added onto the operative schedule for today. Quality Stroke Does the patient have a stroke diagnosis?: No VTE Prior VTE?: No VTE Risk Level:: Surgical - low VTE Device Contraindication: N/A - Device Ordered VTE Drug Contraindication: Treatment Not Indicated Procedures Date of Service Date of Service: 06/04/24
[2024-06-04] MEDS: Lactated Ringers 1,000 ML 100 ML IVCONT (09:00)
--- NOTE | 2024-06-04 09:11 | PC.NURSE ---
pt a&ox4, vss, 22G PIV L forearm, LR running at 100ml/hr. pt changed over in to malik w pants, undergarments, and jewellery placed in pt belongings bag. NPO - pt reports last meal around 1600 yesterday afternoon. surgeon at bedside obtaining consent for procedure. pt denies any questions/needs at this time. plan for transport to OR w d/c.
--- NOTE | 2024-06-04 09:15 | P.CONAN_ITS ---
HPI - Anesthesia Eval Consult details Narrative: Acute cholecystitis PMFSH Active Problems Active Problems: All Active Problems Acute cholecystitis (Acute) Impacted gallstone of gallbladder (Acute) Symptomatic cholelithiasis (Acute) Obesity (BMI 30-39.9) (Acute) T2DM (type 2 diabetes mellitus) (Acute) Past Medical History Medical History (Updated 06/04/24 @ 09:16 by Jose Caceres MD) Obesity Diabetes mellitus No known health problems Family History Family history of problems with anesthesia: No Surgical History Surgical History (Updated 06/04/24 @ 08:21 by Robin Roper MD) H/O: hysterectomy History of Problems with Anesthesia: No Social History Social History Smoked in Last 30 Days: No Use of substances other than those prescribed or required for medical reasons: Yes Substance Use Type: Marijuana Advance Directives: No Advance Directives Information Provided: Yes Do you have a plan to hurt others: No Plan Patient : No Meds Allergies Allergy/AdvReac Type Severity Reaction Status Date / Time No Known Allergies Allergy Unknown Verified 06/03/24 23:20 Active Medications: Current Medications Lactated Ringer's (Lr) 1,000 mls @ 100 mls/hr IVCONT .Q10H SOPHIA Last Admin: 06/04/24 09:00 Dose: 100 mls/hr Exam Height,Weight and Vital Signs: Height 5 ft 3 in Weight 90.718 kg Last Vital Signs Temp 97.9 F 06/04/24 09:07 Pulse 78 06/04/24 09:07 Resp 16 06/04/24 09:07 BP 133/84 06/04/24 09:07 Pulse Ox 97 06/04/24 09:07 O2 Del Method Room Air 06/04/24 09:07 Pertinent Lab Results Pertinent Lab Results: Laboratory Tests 06/03/24 06/03/24 06/04/24 23:35 23:41 05:26 WBC 11.6 H RBC 4.24 Hgb 12.6 Hct 37.0 MCV 87.3 MCH 29.7 MCHC 34.1 RDW 13.2 Plt Count 295 MPV 9.7 Immature Gran % (Auto) 0.3 Neut % (Auto) 49.8 Lymph % (Auto) 43.1 H [place] % (Auto) 5.3 Eos % (Auto) 1.0 Baso % (Auto) 0.5 Lymph # (Auto) 5.0 H [place] # (Auto) 0.6 Eos # (Auto) 0.1 Baso # (Auto) 0.1 Abs Immat Gran (auto) 0.03 Absolute Neuts (auto) 5.8 Absolute Nucleated RBC 0.000 Nucleated RBC % (auto) 0.0 D-Dimer High Sensitivty < 150 Sodium 141 Potassium 3.6 Chloride 108 Carbon Dioxide 24 Anion Gap 13 BUN 17 H Creatinine 0.72 Estim Creat Clear Calc 101.0 Estimated GFR > 60 Random Glucose 167 H Calcium 9.1 Total Bilirubin 0.5 AST 13 ALT 17 Alkaline Phosphatase 71 Troponin I High Sens < 2.7 C-Reactive Protein 0.47 Total Protein 7.1 Albumin 4.2 Lipase 21 Urine Color Yellow Urine Appearance Clear Urine pH 5.5 Ur Specific [place] 1.025 Urine Protein Negative Urine Glucose (UA) Negative Urine Ketones Negative Urine Blood Negative Urine Nitrite Negative Ur Leukocyte Esterase Negative Urine RBC 0-2 Urine WBC 0-5 Ur Squamous Epith Cells 6-10 Urine Bacteria Trace Hyaline Casts 0-2 Airway Mallampati Class: II TM Dist: >3cm Neck ROM: Full Loose/Missing/Broken Teeth: No Heart: RRR Lungs: CTA Assessment and Plan Assessment Anesthesia Assessment: Anesthesia Plan Discussed and Chart Reviewed Final Anesthetic Review Family History of Problems with Anesthesia: No History of Problems with Anesthesia: No NPO: Yes ASA Class: III and Emergency Final Preanesthetic Review: No Changes in Pt Med Stat, Meds/Allgs Chart Reviewed, Consent Obtained/Reviewed and Anes Risks/Benef Reviewed Patient Risk: Intermediate Procedure Risk: Intermediate Anesthetic Plan Anesthetic Plan: GA Disposition: Standard PACU
--- NOTE | 2024-06-04 11:01 | W.PM.OPN ---
Operative Note Operative Note Date of Service: 06/04/24 Narrative: Preoperative diagnosis: Acute cholecystitis, cholelithiasis Postoperative diagnosis: Same Procedure: Laparoscopic cholecystectomy Surgeon: Robin Roper MD County Manager: MARCUS Sadler Anesthesia: General endotracheal Indications for procedure: 48-year-old female patient presenting with a 4 day history of abdominal pain in the right upper quadrant found to have an impacted gallstone the neck of the gallbladder. Patient had tenderness with palpation of the gallbladder consistent with acute cholecystitis. Operative findings: Moderately inflamed gallbladder with the impacted gallstone in the neck Specimen: gallbladder Estimated blood loss: 2 mL Complications: None Procedure details: Patient was brought to the OR and placed in a supine position. After administering general anesthesia the patient's abdomen was prepped with ChloraPrep and draped in a sterile fashion. A surgical time-out was called the consent confirmed. Patient received preoperative antibiotics and Venodyne boots were in place. Local anesthesia consisting of 0.5% Sensorcaine without epinephrine was infiltrated in a periumbilical region. A 5 mm incision was made above the umbilicus in a transverse fashion. The Veress needle was then inserted while elevating abdominal cavity with towel clips. After positive drop test the abdomen was insufflated to a pressure of 15 mm of mercury. The Veress needle was then removed and a 5 mm trocar inserted. The camera was inserted in the abdomen explored. A 12 mm trocar was then placed in the epigastrium. Two 5 mm trocars placed in the right upper quadrant by the assistant real estate manager. The patient was placed in reverse Trendelenburg positioning and rotated to the left. The gallbladder was grasped with the fundus and retracted cephalad by the assistant real estate manager. The infundibulum was then grasped and retracted away from the liver bed, also by the assistant real estate manager. The Dolphin dissected was then used by the surgeon to dissect the peritoneum off the infundibulum to reveal the junction with the cystic duct. Cystic artery was noted slightly medial and posterior to the cystic duct. After obtaining a critical view the cystic duct was doubly clipped and divided. The cystic artery was then doubly clipped and divided. The gallbladder was then dissected off the liver bed using electrocautery with an L hook. Hemostasis was assured all times using the electrocautery. When the gallbladder is completely dissected off the liver bed was placed in an Endo-Catch bag and brought out through the epigastric incision. The gallbladder was sent to pathology for further examination. The abdomen was then re-examined. The liver bed was irrigated and suctioned dry. No bleeding or bile leak could be identified. CO2 was then evacuated and all trocars removed. Fascia was closed at the epigastric incision using a [id number] 0 Polysorb suture. Skin was closed in all incisions using a subcuticular 4 0 Polysorb suture by both the surgeon and assistant real estate manager. Sterile dressings consisting of Steri-Strips, 2 x 2 gauze, and Tegaderm were then applied. The patient tolerated the procedure well. Sponge instrument and needle counts reported as correct. The patient was transferred to PACU in stable condition.
[2024-06-04] MEDS: HYDROmorphone HCl 0.5 MG/0.5 ML SYRINGE IVPUSH (11:10)
[2024-06-04] MEDS: droPERidol 5 MG/2 ML VIAL 0.625 MG IVPUSH (11:49)
--- NOTE | 2024-06-05 08:01 | HO.POSTANES ---
Post Anesthesia Evaluation Post Anesthesia Evaluation Date of Service: 06/05/24 Anesthesia: General Endotracheal-GETA Mental Status: Awake Pain Control: Satisfactory Nausea/Vomiting: None Hydration: Adequate Anesthesia-Related Issues: No Anes. Related Issues
== END 2024-06-04 12:16 | disposition home or self-care (01) ==
LOC: HO.ED 06-04 07:47 → HO.SSS 06-04 08:53
PROVIDERS: Emergency Provider Emergency Medicine; Visit Provider Surgery
PROC: 0FT44ZZ Resection of Gallbladder, Percutaneous Endoscopic Approach (ICD-10-PCS; CPT 47562; principal; 2024-06-04 09:15)
DX: K80.00 Calculus of gallbladder with acute cholecystitis without obstruction (principal); E11.9 Type 2 diabetes mellitus without complications; Z79.899 Other long term (current) drug therapy
CPT/HCPCS: 47562; 36415; 76705; 80053; 81001; 83690; 84484; 85025; 85379; 86140; 88304; 93005; 96361; 96374; 99285; J0131; J1170; J1790; J1885; J2250; J2270; J2405; J2704; J2795; J3010

== ENCOUNTER → 2024-06-04 02:01 | Outpatient (BNV) | payer OTHER, SELFPAY | PROVIDERS: Emergency Provider Emergency Medicine; Visit Provider Surgery | DX: K81.0 Acute cholecystitis (principal) | CPT/HCPCS: 47562; 99284 ==

== ENCOUNTER → 2024-06-04 04:23 | Outpatient (BNV) | payer OTHER, SELFPAY | PROVIDERS: Emergency Provider Emergency Medicine; Visit Provider Internal Medicine Cardiovascular Disease | DX: R07.9 Chest pain, unspecified (principal) | CPT/HCPCS: 93010 ==

== ENCOUNTER 2024-06-21 08:59 | Outpatient (AMB) | payer OTHER, SELFPAY ==
--- NOTE | 2024-06-21 09:06 | MHC.OFFVIS ---
Vital Signs 06/21/24 09:09 Height 5 ft 3 in Weight 199 lb BMI 35.2 BP 130/75 Blood Pressure Location Lt brachial Position Sitting Pulse 73 Intake Visit Reasons: s/p lap svitlana Intake Note: Patient is seen in office for post op assessment post laparoscopic cholecystectomy. Pt c/o: denies any concerns Tower Dragline Operator Required: Yes Tower Dragline Operator Language: Salesperson [employer] Services: Tower Dragline Operator Present Tower Dragline Operator Name: Conchis MCCLELLAND Information Interpreted: non-clinical & clinical Accompanied by: Self / Same As Patient Allergies No Known Allergies Allergy (Unknown, Verified 06/21/24 09:08) HPI Comments Details: 48-year-old female patient presenting with a recent history of acute cholecystitis due to an impacted gallstone in the neck of the gallbladder, status post laparoscopic cholecystectomy on 06/04/2024. She returns today for a postoperative check. She feels much improved and denies any nausea, vomiting, fever or chills. He is eating well and is having regular bowel movements. [facility] Medical History (Updated 06/12/24 @ 00:02 by Aleks Villar) Acute cholecystitis Impacted gallstone of gallbladder Symptomatic cholelithiasis Obesity Diabetes mellitus No known health problems Surgical History (Updated 06/20/24 @ 12:18 by KRYSTIN Lindsay) Hx laparoscopic cholecystectomy (06/04/24) H/O: hysterectomy Social History Substance Use Type: Marijuana Physical Exam Const General: no acute distress Nutritional Appearance: well nourished Orientation/consciousness: patient oriented x3 Resp Effort & Inspection: normal respiratory effort, no audible wheezes, no cough and no respiratory distress GI Other: Trocar incisions are clean, dry, and intact without redness or discharge. No hernia or infection is noted. Neuro General: patient oriented x3 Extrem General: Yes no clubbing, cyanosis or edema Assessment & Plan Assessment & Plan (1) Acute cholecystitis: Code(s): K81.0 - Acute cholecystitis Category: Medical Plan 48-year-old female patient status post laparoscopic cholecystectomy for acute cholecystitis. She tolerated the procedure well and her wounds are healing nicely. I recommended she avoid lifting greater than 10 lb for the next week after which she may return to normal activity. She should avoid greasy/ fried foods for one-month. She should follow up as needed. Medications: Discontinued oxycodone Partial Fill upon patient request. Discontinued Reason: Patient Completed Course 5 mg PO Q6H PRN 15 tabs 0RF pain (scale score 7-10) Coding Level of Care Code Global (10000) Diagnoses Acute cholecystitis K81.0
[2024-06-21 09:09] VITALS: BP 130/75; PULSE 73; BMI 35.2
== END 2024-06-21 09:21 | disposition home or self-care (01) ==
PROVIDERS: Visit Provider Surgery
DX: K81.0 Acute cholecystitis (principal)
CPT/HCPCS: 99024

== ENCOUNTER → 2024-06-21 08:59 | Outpatient (BNVA) | payer OTHER, SELFPAY | PROVIDERS: Visit Provider Surgery | DX: K81.0 Acute cholecystitis (principal) | CPT/HCPCS: 99212 ==

== ENCOUNTER 2025-01-15 17:10 | Emergency (ER) | payer OTHER, SELFPAY ==
--- NOTE | ~2025-01-15 | XR_ITS ---
CLINICAL HISTORY: pain 3 view, pelvis and right hip Comparison: None Findings: The bones are intact. [id number] narrowing of the bilateral acetabulofemoral joints with degenerative spurring. Multiple intrapelvic clips. IMPRESSION: No acute fracture or dislocation. This document has been electronically signed by: Paradise Rodriguez DO on 01/15/2025 18:32:38
--- NOTE | ~2025-01-15 | CT_ITS ---
CLINICAL HISTORY: right lower abdominal pain CT ABDOMEN AND PELVIS WITH CONTRAST Comparison: CT/REG/SR - ABD PELV W IV CON ONLY [id number] - 05/21/20 21:57 EDT Findings: No basilar consolidation or pleural effusion. No acute abnormalities in the solid organs. No renal or ureteral calculus. Cholecystectomy. No significant biliary ductal dilatation. No AAA. No lymphadenopathy. No bowel obstruction, pneumoperitoneum, or pneumatosis. No ascites. No significant mesenteric or paracolic edema. The appendix is identified. No acute appendicitis. Hysterectomy. Urinary bladder unremarkable. No acute fracture. IMPRESSION: 1. No obstructive or acute inflammatory changes in the gastrointestinal and genitourinary tracts. 2. No urolithiasis. 3. Prior cholecystectomy and hysterectomy. This document has been electronically signed by: Paradise Rodriguez DO on 01/15/2025 20:11:49
[2025-01-15 17:22] VITALS: BP 135/91; PULSE 76; RESP 16; TEMP 36.6; O2SAT 100; BMI 33.5
--- NOTE | 2025-01-15 17:23 | ED_ITS ---
HPI - Abdominal Pain General Chief Complaint: General Medical Stated Complaint: rt lwr abd pain 1wk today worse Time Seen by Provider: 01/15/25 17:42 Source: patient, RN notes reviewed, old records reviewed and sign language interpreter Mode of arrival: ambulatory Limitations: language barrier History of Present Illness ED Provider: Jennifer HPI narrative: 49-year-old female very significant for type 2 diabetes presents for evaluation of right hip pain. Patient reports that she has had pain for the last week to her right hip Her pain is worse with going up or downstairs. Does have some pain radiating to her right groin but denies abdominal pain, nausea vomiting. She does reports some diarrhea that is nonbloody over the last week Denies any burning with urination Related Data Previous Rx's ?Medication ?Instructions ?Recorded albuterol sulfate 90 mcg/actuation 2 puff inhalation Q4-6H PRN 06/15/21 aerosol inhaler (ProAir HFA) shortness of breath or wheezing #6.7 grams prednisone 20 mg tablet 60 mg (3 x 20 mg) PO DAILY 3 days 06/15/21 #9 tabs acetaminophen 500 mg tablet 1,000 mg (2 x 500 mg) PO QID PRN 05/30/22 pain #30 tabs ibuprofen 600 mg tablet 600 mg PO Q6H PRN pain #20 tabs 05/30/22 albuterol sulfate 90 mcg/actuation 1 inh inhalation QID PRN shortness 03/09/24 aerosol inhaler of breath or wheezing #8.5 grams benzonatate 100 mg capsule 100 mg PO BID PRN cough 7 days #14 03/09/24 caps Allergies Allergy/AdvReac Type Severity Reaction Status Date / Time No Known Allergies Allergy Unknown Verified 01/15/25 17:26 Review of Systems Constitutional: Denies body ache(s), Denies chills and Denies fever(s) Eyes: Denies blurry vision Denies odynophagia Cardiovascular: Denies chest pain and Denies dyspnea Respiratory: Denies cough and Denies dyspnea Gastrointestinal: Denies abdominal pain, Denies hematochezia, Reports diarrhea, Reports loose stools, Denies odynophagia, Denies vomiting and Denies hematemesis Musculoskeletal: Denies back pain, Reports arthralgias, Denies joint swelling and Denies limited range of motion Skin/Breast: Denies rash PMFSH Past Medical History Medical History (Updated 01/15/25 @ 18:42 by Manuelito Rodriguez) Acute cholecystitis Impacted gallstone of gallbladder Symptomatic cholelithiasis Obesity Diabetes mellitus No known health problems Surgical History Hx laparoscopic cholecystectomy (06/04/24) H/O: hysterectomy Social History Social History Substance Use Type: Marijuana Advance Directives: No Advance Directives Information Provided: No Physical Exam ED Vital Signs: Vital Signs - 24 hr 01/15/25 17:22 01/15/25 18:20 Temperature 97.8 F 99.1 F Pulse Rate 76 79 Respiratory Rate 16 16 Blood Pressure 135/91 H 140/92 H Pulse Oximetry 100 100 Oxygen Delivery Method Room Air Room Air BMI result Body Mass Index 33.5 Const General: healthy appearing, comfortable, no acute distress, alert and awake Nutritional Appearance: well nourished Orientation/consciousness: patient oriented x3 HENMT Head: Yes normocephalic and Yes atraumatic Eyes Eyelids: Yes eyelids normal Conjunctivae: conjunctivae normal Sclerae: sclerae normal Corneas: corneas normal Pupils: Equal, round and reactive pupils present EOM: EOMs intact bilaterally Neck Neck: Yes full ROM Resp Effort & Inspection: normal respiratory effort, able to speak in complete sentences and not labored GI Other: There was no palpable inguinal hernia Inspection: No distended Palpation (GI): Soft to palpation, not firm, nontender, no guarding and not rigid Auscultation: normoactive bowel sounds Skin General skin exam: no rashes or lesions noted Neuro General: patient oriented x3 Cranial nerves: Yes Equal, round and reactive pupils present and Yes Bilaterally intact EOM present Cognition (Neuro): normal cognition Extrem Other: Where he was mild tenderness to the right hip and iliac crest. She retains good range of motion of the right hip Course Course Course Narrative: This is a Rapid Medical Examination (RME) performed by Tony Kline PA-C in triage. Full HPI, ROS, assessment and treatment plan per primary provider in the Main ED. 49 y/o female presenting for evaluation of right anterior hip pain for the last 1 week. she has had associated diarrhea. pain is worse with walking. no urinary symptoms. tenderness of the right iliac crest on exam. minimal RLQ tenderness without rebound or guarding. Plan: XR hip, basic labs Medical Decision Making Medical Decision Making [facility] Narrative: 49-year-old female presents for evaluation of mostly right hip pain. She is tender in the right hip. She has some tenderness in the right groin but I do not palpate an obvious inguinal hernia. Plan for labs, urinalysis and a CT scan of the abdomen pelvis. Differential Diagnosis Differential Diagnoses: The differential diagnosis associated with the presentation includes Inguinal hernia Obstructive uropathy Right hip pain Arthritis Right hip bursitis Acute appendicitis less likely Lab Data [facility] Lab Attestation statement: I reviewed the patient's lab results. No leukocytosis or anemia. Normal platelet count. No significant electrolyte abnormalities 01/15/25 18:14 01/15/25 18:14 Labs: Lab Results 01/15/25 01/15/25 Range/Units 18:14 19:47 WBC 10.5 (4.8-10.8) X10*3/uL RBC 4.47 (4.20-5.50) X10*6/uL Hgb 13.2 (12.0-16.0) g/dl Hct 39.9 (37.0-47.0) % MCV 89.3 (80.0-98.0) fL MCH 29.5 (27.0-33.0) pg MCHC 33.1 (31.0-35.0) g/dl RDW 13.2 (11.0-16.0) % Plt Count 308 (160-400) X10*3/uL MPV 10.0 (9.4-12.3) fL Immature Gran % (Auto) 0.7 H (0.0-0.4) % Neut % (Auto) 49.0 (45-73) % Lymph % (Auto) 43.0 H (20-40) % [place] % (Auto) 5.9 (2-11) % Eos % (Auto) 0.7 (0-4) % Baso % (Auto) 0.7 (0-2) % Lymph # (Auto) 4.5 (1.2-4.9) X10*3/uL [place] # (Auto) 0.6 (0.1-1.2) X10*3/uL Eos # (Auto) 0.1 (0.0-0.4) X10*3/uL Baso # (Auto) 0.1 (0.0-0.2) X10*3/uL Abs Immat Gran (auto) 0.07 H (0.00-0.03) X10*3/uL Absolute Neuts (auto) 5.2 (2.0-8.3) x10*3/uL Absolute Nucleated RBC 0.000 (0.0-0.012) X10*3/uL Nucleated RBC % (auto) 0.0 (0.0-0.2) /100WBC Sodium 144 (135-145) mmol/L Potassium 4.4 D (3.3-5.1) mmol/L Chloride 109 H (96-108) mmol/L Carbon Dioxide 24 (22-29) mmol/L Anion Gap 15 (12-20) BUN 15 (9-16) mg/dL Creatinine 0.71 (0.5-1.4) mg/dL Estim Creat Clear Calc 98.3 Estimated GFR > 60 Random Glucose 107 (60-115) mg/dL Calcium 8.9 (8.4-10.2) mg/dL Magnesium 2.1 (1.6-2.6) mg/dL Total Bilirubin 0.6 (0.0-1.0) mg/dL Direct Bilirubin 0.2 (0.0-0.5) mg/dL AST 18 (5-31) U/L ALT 20 (0-31) U/L Alkaline Phosphatase 74 (39-117) U/L Total Protein 7.4 (6.5-8.0) g/dL Albumin 4.2 (3.5-5.0) g/dL Urine Color Yellow Urine Appearance Clear Urine pH 8.5 (5.0-9.0) Ur Specific [place] >= 1.030 H (1.005-1.025) Urine Protein Trace (Neg-Trace) mg/dL Urine Glucose (UA) Negative (Negative) mg/dL Urine Ketones Negative (Negative) mg/dL Urine Blood Negative (Negative) Urine Nitrite Negative (Negative) Ur Leukocyte Esterase Negative (Negative) Radiology Impression Discussion of test interpretation with radiology: I have reviewed the radiologist's reading. Radiologist Impression: Findings: No basilar consolidation or pleural effusion. No acute abnormalities in the solid organs. No renal or ureteral calculus. Cholecystectomy. No significant biliary ductal dilatation. No AAA. No lymphadenopathy. No bowel obstruction, pneumoperitoneum, or pneumatosis. No ascites. No significant mesenteric or paracolic edema. The appendix is identified. No acute appendicitis. Hysterectomy. Urinary bladder unremarkable. No acute fracture. IMPRESSION: 1. No obstructive or acute inflammatory changes in the gastrointestinal and genitourinary tracts. 2. No urolithiasis. 3. Prior cholecystectomy and hysterectomy. This document has been electronically signed by: Paradise Rodriguez DO on 01/15/2025 20:11:49 Medications Administered Discontinued Medications Generic Name Dose Route Start Last Admin Trade Name Freq PRN Reason Stop Dose Admin Iohexol 100 ml 01/15/25 18:53 01/15/25 18:54 Iohexol 350 Mg/Ml 100 Ml Infus..Btl IV 01/15/25 18:54 85 ml ONCE ONE Administration Ketorolac Tromethamine 30 mg 01/15/25 17:58 01/15/25 18:18 Ketorolac Tromethamine 30 Mg/Ml Vial IVPUSH 01/15/25 17:59 30 mg ONCE ONE Administration Discharge Plan Discharge Clinical Impression: Acute pain of right hip Patient Disposition: Home, Self-Care Instructions: Hip Pain (ED), Arthralgia (ED) Additional Instructions: Your blood work today was reassuring. Your urinalysis did not show any signs of infection. Your CT scan did not show any concerning abnormalities to explain your pain today. Use ibuprofen/Tylenol for pain and follow up with your primary doctor Return for new or worsening symptoms Prescriptions: No Action prednisone 20 mg tablet 60 mg PO DAILY 3 Days Qty: 9 0RF albuterol sulfate [ProAir HFA] 90 mcg/actuation HFA aerosol inhaler 2 puff inhalation Q4-6H PRN (Reason: shortness of breath or wheezing) Qty: 6.7 0RF acetaminophen 500 mg tablet 1,000 mg PO QID PRN (Reason: pain) Qty: 30 0RF ibuprofen 600 mg tablet 600 mg PO Q6H PRN (Reason: pain) Qty: 20 0RF benzonatate 100 mg capsule 100 mg PO BID PRN (Reason: cough) 7 Days Qty: 14 0RF albuterol sulfate 90 mcg/actuation HFA aerosol inhaler 1 inh inhalation QID PRN (Reason: shortness of breath or wheezing) Qty: 8.5 0RF Print Language: Macedonian
[2025-01-15] MEDS: Ketorolac Tromethamine 30 MG/ML VIAL IVPUSH (18:18)
[2025-01-15 18:20] VITALS: BP 140/92; PULSE 79; RESP 16; TEMP 37.3; O2SAT 100
[2025-01-15 18:21] LABS: MANUAL DIFF FLAG NO
[2025-01-15 18:31] LABS: Basophils Absolute Auto 0.1 X10*3/uL (0.0-0.2); Basophils Percent Auto 0.7 % (0-2); Eosinophils Absolute Auto 0.1 X10*3/uL (0.0-0.4); Eosinophils Percent Auto 0.7 % (0-4); Hematocrit 39.9 % (37.0-47.0); Hemoglobin 13.2 g/dl (12.0-16.0); Imm Gran Abs Auto 0.07 X10*3/uL (0.00-0.03); Imm Gran Pct Auto 0.7 % (0.0-0.4); Lymphocytes Absolute Auto 4.5 X10*3/uL (1.2-4.9); Mean Corpuscular HGB Conc 33.1 g/dl (31.0-35.0); Mean Corpuscular Hemoglobin 29.5 pg (27.0-33.0); Mean Corpuscular Volume 89.3 fL (80.0-98.0); Monocytes Absolute Auto 0.6 X10*3/uL (0.1-1.2); Monocytes Percent Auto 5.9 % (2-11); Neutrophils Absolute Auto 5.2 x10*3/uL (2.0-8.3); Platelet Count 308 X10*3/uL (160-400); Red Blood Count 4.47 X10*6/uL (4.20-5.50); Red Cell Distribution Width 13.2 % (11.0-16.0); White Blood Count 10.5 X10*3/uL (4.8-10.8)
[2025-01-15 18:38] LABS: Alanine Aminotransferase 20 U/L (0-31); Albumin Level 4.2 g/dL (3.5-5.0); Alkaline Phosphatase 74 U/L (39-117); Anion Gap 15 (12-20); Aspartate Amino Transferase 18 U/L (5-31); Bilirubin Direct 0.2 mg/dL (0.0-0.5); Bilirubin Total 0.6 mg/dL (0.0-1.0); Blood Urea Nitrogen 15 mg/dL (9-16); Calcium 8.9 mg/dL (8.4-10.2); Carbon Dioxide 24 mmol/L (22-29); Chloride 109 mmol/L (96-108); Creatinine Clr Calc Pharmacy 98.3; Estimated Glomerular Filt Rate > 60; Glucose Random 107 mg/dL (60-115); Magnesium 2.1 mg/dL (1.6-2.6); Potassium 4.4 mmol/L (3.3-5.1); Sodium 144 mmol/L (135-145); Total Protein 7.4 g/dL (6.5-8.0)
[2025-01-15] MEDS: iohexoL 350 MG/ML 100 ML INFUS..BTL IV (18:54)
[2025-01-15 19:56] LABS: Appearance Urine Clear; Color Urine Yellow; Glucose Urine UA Negative (Negative); Leukocyte Esterase Urine Negative (Negative); Nitrite Urine Negative (Negative); PH 8.5 (5.0-9.0); Specific Gravity - Urine >= 1.030 (1.005-1.025); Urine Blood Negative (Negative); Urine Ketones Negative (Negative); Urine Protein Trace mg/dL (Neg-Trace)
[2025-01-15 20:49] VITALS: BP 140/92; PULSE 79; RESP 16; TEMP 37.3; O2SAT 100
== END 2025-01-15 20:49 | disposition home or self-care (01) ==
PROVIDERS: Physician Assistant; Emergency Provider Emergency Medicine; PCP Internal Medicine
DX: M25.551 Pain in right hip (principal)
CPT/HCPCS: 36415; 73502; 74177; 80048; 80076; 81003; 83735; 85025; 96374; 99284; J1885; Q9967

== ENCOUNTER → 2025-01-15 17:25 | Outpatient (BNV) | payer OTHER, SELFPAY | PROVIDERS: Emergency Provider Emergency Medicine; PCP Internal Medicine; Visit Provider Radiology Diagnostic Radiology | DX: M25.551 Pain in right hip (principal); R10.31 Right lower quadrant pain | CPT/HCPCS: 73502; 74177 ==

== ENCOUNTER 2025-10-16 15:03 | Emergency (ER) | payer OTHER, SELFPAY ==
--- OUTSIDE RECORDS SUMMARY | 2022-04-15 10:00 | XMS_ITS | Continuity of Care Document ---
Author Organization [facility] Address [address] [place] [address] [place] [phone] Phone Care Team Providers Care Social Science Professor Name Role Phone Robb SAUCEDO, Rosalind Unavailable Unavailable Allergies, Adverse Reactions, Alerts Substance Reaction Status Criticality No Known Allergies Active No Inform ation Procedures Procedure Date Office/Outpt E&M Established 25 Mins - T elemedicine Advance Directives Directive Yes / No Effective Date File Name No Information Encounters Encounter Description Practice Location Reason(s) For Visit Diagnoses Date Provider Encounter Disposition Office/Outpt E&M Established 25 Mins - Telemedicine [facility] [employer], [address] [place] [address], [id number], [place] tel:[phone] [facility] Body mass index (BMI) 37.0-37.9, adultVenous insufficiency (chronic) (peripheral)Spi maxim Veins - (Telangiectasia ) 2 Robb SAUCEDO Rosalind. [address] [facility], [address], [place], [place], [id number] , [place]. tel:[phone] [facility] [address], [id number], [place] tel:[phone] [facility] Body mass index (BMI) 37.0-37.9, adultVenous insufficiency (chronic) (peripheral)Chr onic venous htn w oth comp of bilateral low extrm Dec-0 1 Candida Moody. [address], [address], [place], [address], [place]. tel: [phone] [facility], [address] [place] [address], [place], [place], [id number], [place] tel:[phone] [facility] [place] [facility] [place] Varicose veins of right lower extremities with pain 1 Candida Moody. [address], [address], [place], [address], [place]. tel: [phone] [facility], [address] [place] [address], [place], [place], [id number], [place] tel:[phone] [facility] [place] Encntr for f/u exam aft trtmt for cond oth than malig neoplmChronic venous hypertension w oth comp of r low extrem 1 Candida Moody. [address], [address], [place], [address], [place]. tel: [phone] [facility], [address] [place] [address], [place], [place], [id number], [place] tel:[phone] [facility] [place] Varicose veins of right low extrm w oth complications 1 Candida Moody. [address], [address], [place], [address], [place]. tel: [phone] [facility], [address] [place] [address], [id number], [place] tel:[phone] [facility] [place] Body mass index (BMI) 37.0-37.9, adultEssential (primary) hypertensionChr onic venous hypertension w oth comp of r low extremChronic venous hypertension w/o comp of l low extremVenous insufficiency (chronic) (peripheral) 1 Candida Moody. [address], [address], [place], [address], [place]. tel: [phone] [facility], [address], [id number], [phone] [facility] Varicose veins of bilateral lower extremities with pain Candida Moody. [address], [address], [place], [address], [place]. tel: [phone] Family History Family Member Type Diagnosis Age At Onset No Information Payers Payer name Insurance type Identifiers Authorization(s) Comments [facility] CI riber ID: [id number] Name: Coverage Status Eligibility Check on: UnknownRelationship to Subscriber: selfPayer Address: [address] [address], [place], [place], [id number], [facility] Phone: [phone] Social History Type Description Quantity Date Captured Comments Alcohol Use Details No Caffeine Use Details Unknown Tobacco Use Status Never smoked tobacco 2021 Smoking Status Never smoker Non-Smoking Tobacco Use Details : No Details Available : No Details Available Sex Female No - not Current Gender Female (finding) Vital Signs Date / Time: Height Weight BMI Pulse Rate Blood Pressure Temperature Respiratory Rate Body Surface Area Head Circumference Head Circ. Percentile Wt./Stalin. Percentile BMI percentile Pulse Ox Inhaled Ox 3:02 PM 63.00 in 94.801 kg (209.00 lbs) 37.0 2 kg/m eter (2) Chief Complaint And Reason For Visit No Information Plan Of Treatment Date Type Action Status Goal Diet education completed Goal Diet education completed Goal Diet education completed Goal Diet education completed Referral Ordered: Weight management: Referral to general physician timeframe: 3 Months. (related to Body mass index [BMI] 37.0-37.9, adult) ordered Referral Ordered: Blood Pressure management: Referral to doctor timeframe: 6 Months. (related to Essential (primary) hypertension) ordered Referral Ordered: Duplex Scan-extrem Veins; Comp Bilateral leg ordered History Of Present Illness Encounter Date Complaint History Of Prese nt Illness No Information Functional Status Date Description Comments No Information Instructions Date Instruction Additional Infor mary Diet education Related to Body mass index [BMI] 37.0-37.9, adult Giving Encouragement to Exercise Related to Body mass index [BMI] 37.0-37.9, adult Patient education booklet given Related to Venous Insufficiency (Chronic / Peripheral) Patient education booklet given Related to Venous Insufficiency (Chronic / Peripheral) Continue compression stocking us e Related to Venous Insufficiency (Chronic / Peripheral) Giving Encouragement to Exercise Related to Body mass index [BMI] 37.0-37.9, adult Diet education Related to Body mass index [BMI] 37.0-37.9, adult Patient education booklet given Related to Chrn Vns Hyprtnsn w/Compl (Pain Edema Swelling); RIGHT Continue compression stocking us e Related to Chrn Vns Hyprtnsn w/Compl (Pain Edema Swelling); RIGHT Lifestyle education Related to E ssential (primary) hypertension Diet education Related to Essen tial (primary) hypertension Exercise education Related to Es sential (primary) hypertension Diet education Related to Body mass index [BMI] 37.0-37.9, adult Giving Encouragement to Exercise Related to Body mass index [BMI] 37.0-37.9, adult Assessments Type Assessment Date assessment Body mass index [BMI] 37.0-37.9, adult assessment Venous insufficiency (chronic) ( peripheral) assessment Spider Veins - (Telangiectasia)
--- NOTE | ~2025-10-16 | XR_ITS ---
EXAMINATION: XR CHEST CLINICAL INFORMATION: chest pain COMPARISON: 06/21/2024 TECHNIQUE: 2 views of the chest were obtained. FINDINGS: No significant abnormality is noted involving the heart, lungs, mediastinum, bony thorax or soft tissues. XR/XR chest 2V IMPRESSION: No interval change, no acute disease Electronically signed by: Oswald Rousseau MD 10/16/2025 03:46 PM EST
--- NOTE | 2025-10-16 15:04 | ECG_ITS ---
Test Reason : chest pain Blood Pressure : */* mmHG Vent. Rate : 78 BPM Atrial Rate : 78 BPM P-R Int : 134 ms QRS Dur : 74 ms QT Int : 378 ms P-R-T Axes : 79 -5 13 degrees QTcB Int : 430 ms Normal sinus rhythm Normal ECG When compared with ECG of 04-Jun-2024 05:25, Questionable change in QRS axis Referred By: Hanane Meraz Electronically Signed By: Pedro Luis Damon
[2025-10-16 15:24] VITALS: BP 157/86; PULSE 88; RESP 16; TEMP 36.8; O2SAT 96; BMI 33.3
--- NOTE | 2025-10-16 15:24 | ED.GENADULT ---
HPI - General Adult General Chief complaint: Upper Respiratory Symptoms Stated complaint: CP/ back pain- coughing a lot Time Seen by Provider: 10/16/25 17:57 Source: patient and RN notes reviewed Limitations: language barrier (Britt[place]) History of Present Illness HPI narrative: 50-year-old female with history of diabetes presents for 1 week history of cough. Patient reports persistent symptoms. She has a history of asthma, and has been using her inhaler more frequently. She denies any tobacco use. Unknown if any sick contacts. She has otherwise been feeling well. Glucose has been well managed Related Data Previous Rx's ?Medication ?Instructions ?Recorded albuterol sulfate 90 mcg/actuation 2 puff inhalation Q4-6H PRN 06/15/21 aerosol inhaler (ProAir HFA) shortness of breath or wheezing #6.7 grams prednisone 20 mg tablet 60 mg (3 x 20 mg) PO DAILY 3 days 06/15/21 #9 tabs acetaminophen 500 mg tablet 1,000 mg (2 x 500 mg) PO QID PRN 05/30/22 pain #30 tabs ibuprofen 600 mg tablet 600 mg PO Q6H PRN pain #20 tabs 05/30/22 Held on 06/04/24. Instructions: Resume on 06/07/24. albuterol sulfate 90 mcg/actuation 1 inh inhalation QID PRN shortness 03/09/24 aerosol inhaler of breath or wheezing #8.5 grams benzonatate 100 mg capsule 100 mg PO BID PRN cough 7 days #14 03/09/24 caps albuterol sulfate 2.5 mg/0.5 mL 5 mg inhalation Q6H PRN shortness 10/16/25 solution for nebulization of breath or wheezing #30 ea albuterol sulfate 90 mcg/actuation 2 puff inhalation Q6H PRN 10/16/25 aerosol inhaler (Ventolin HFA) shortness of breath or wheezing #6.7 grams benzonatate 200 mg capsule 200 mg PO BID PRN cough #14 caps 10/16/25 doxycycline monohydrate 100 mg 100 mg PO BID 7 days #14 caps 10/16/25 capsule Allergies Allergy/AdvReac Type Severity Reaction Status Date / Time No Known Allergies Allergy Unknown Verified 10/16/25 15:27 Review of Systems Review of Systems: Yes all other systems are reviewed and are negative ENT: Reports nasal congestion, Denies sore throat and Denies tongue swelling Respiratory: Respiratory: Reports chest congestion, Reports cough and Reports wheezing Allergic/Immunologic: Allergic/Immunologic: Denies tongue swelling and Reports wheezing [facility] Past Medical History Medical History Acute cholecystitis Impacted gallstone of gallbladder Symptomatic cholelithiasis Obesity Diabetes mellitus No known health problems Surgical History Hx laparoscopic cholecystectomy (06/04/24) H/O: hysterectomy Social History Social History Substance Use Type: Marijuana Advance Directives: No Advance Directives Information Provided: Yes Physical Exam ED Vital Signs: Vital Signs - 24 hr 10/16/25 15:24 Temperature 98.2 F Pulse Rate 88 Respiratory Rate 16 Blood Pressure 157/86 H Pulse Oximetry 96 Oxygen Delivery Method Room Air BMI result Body Mass Index 33.3 Const General: alert and awake HENMT Other: Speaks full clear sentences. Auditory canals are patent. TMs are pearly white. Nares are patent, clear nasal discharge. Oropharynx is moist. No tongue elevation or edema. No exudate. Resp Other: Lung sounds clear throughout. No wheezes rales or rhonchi Course Course Course Narrative: Rapid medical examination performed in triage by Hanane Meraz PA-C: Patient is a 50 year old female presenting to the emergency department with a fever and cough. Patient states that over the last week she has had a cough, fever, nausea, and vomiting. Patient states that she also has chest pain. Detailed physical exam and review of systems are deferred to the radiology manager. Labs, imaging, swabs ordered. Patient placed back in the waiting room pending room availability and results. Medical Decision Making Medical Decision Making MDM Narrative: 50-year-old female with one-week history of cough, subjective fevers nasal congestion. Viral testing is negative. We will treat given her underlying history of diabetes and asthma. Reviewed all discharge instructions. No further questions at this time. Differential Diagnosis Differential Diagnoses: The differential diagnosis associated with the presentation includes Pneumonia Bronchitis Viral syndrome URI Asthma Lab Data 10/16/25 15:47 10/16/25 15:47 Labs: Lab Results 10/16/25 Range/Units 15:47 WBC 12.0 H (4.8-10.8) X10*3/uL RBC 4.17 L (4.20-5.50) X10*6/uL Hgb 12.4 (12.0-16.0) g/dl Hct 37.0 (37.0-47.0) % MCV 88.7 (80.0-98.0) fL MCH 29.7 (27.0-33.0) pg MCHC 33.5 (31.0-35.0) g/dl RDW 13.2 (11.0-16.0) % Plt Count 288 (160-400) X10*3/uL MPV 9.8 (9.4-12.3) fL Immature Gran % (Auto) 0.4 (0.0-0.4) % Neut % (Auto) 59.7 (45-73) % Lymph % (Auto) 33.8 (20-40) % [place] % (Auto) 5.5 (2-11) % Eos % (Auto) 0.3 (0-4) % Baso % (Auto) 0.3 (0-2) % Lymph # (Auto) 4.1 (1.2-4.9) X10*3/uL [place] # (Auto) 0.7 (0.1-1.2) X10*3/uL Eos # (Auto) 0.0 (0.0-0.4) X10*3/uL Baso # (Auto) 0.0 (0.0-0.2) X10*3/uL Abs Immat Gran (auto) 0.05 H (0.00-0.03) X10*3/uL Absolute Neuts (auto) 7.2 (2.0-8.3) x10*3/uL Absolute Nucleated RBC 0.000 (0.0-0.012) X10*3/uL Nucleated RBC % (auto) 0.0 (0.0-0.2) /100WBC Sodium 141 (135-145) mmol/L Potassium 3.9 (3.3-5.1) mmol/L Chloride 105 (96-108) mmol/L Carbon Dioxide 28 (22-29) mmol/L Anion Gap 12 (12-20) BUN 14 (9-16) mg/dL Creatinine 0.57 (0.5-1.4) mg/dL Estim Creat Clear Calc 120.8 Estimated GFR > 60 Random Glucose 96 (60-115) mg/dL Calcium 9.4 (8.4-10.2) mg/dL Magnesium 2.0 (1.6-2.6) mg/dL Total Bilirubin 0.5 (0.0-1.0) mg/dL AST 17 (5-31) U/L ALT 16 (0-31) U/L Alkaline Phosphatase 72 (39-117) U/L Troponin I High Sens < 2.7 (<3.5-17.0) ng/L Total Protein 7.4 (6.5-8.0) g/dL Albumin 4.5 (3.5-5.0) g/dL Influenza Type A (PCR) NEGATIVE (Negative) Influenza Type B (PCR) NEGATIVE (Negative) RSV RNA Qual (PCR) NEGATIVE (Negative) SARS-CoV-2 RNA (RT-PCR) NEGATIVE (Negative) Radiology Impression Discussion of test interpretation with radiology: I have reviewed the radiologist's reading. Prescription Management I considered prescription management with: Antibiotic Chronic Conditions Patient?s care impacted by: Diabetes Discharge Plan Discharge Clinical Impression: Bronchitis Patient Disposition: Home, Self-Care Instructions: Acute Bronchitis (ED) Additional Instructions: Benzonatate capsules as directed for cough. Doxycycline as directed. Finish all antibiotics. Continue albuterol as directed. Follow-up with your primary care provider. Call this week to schedule a follow-up appointment. Return to the emergency department if you have any worsening of symptoms, or any concerns. Get well soon! Prescriptions: New doxycycline monohydrate 100 mg capsule 100 mg PO BID 7 Days Qty: 14 0RF benzonatate 200 mg capsule 200 mg PO BID PRN (Reason: cough) Qty: 14 0RF albuterol sulfate [Ventolin HFA] 90 mcg/actuation HFA aerosol inhaler 2 puff inhalation Q6H PRN (Reason: shortness of breath or wheezing) Qty: 6.7 0RF albuterol sulfate 2.5 mg/0.5 mL solution for nebulization 5 mg inhalation Q6H PRN (Reason: shortness of breath or wheezing) Qty: 30 0RF No Action prednisone 20 mg tablet 60 mg PO DAILY 3 Days Qty: 9 0RF albuterol sulfate [ProAir HFA] 90 mcg/actuation HFA aerosol inhaler 2 puff inhalation Q4-6H PRN (Reason: shortness of breath or wheezing) Qty: 6.7 0RF acetaminophen 500 mg tablet 1,000 mg PO QID PRN (Reason: pain) Qty: 30 0RF ibuprofen 600 mg tablet 600 mg PO Q6H PRN (Reason: pain) Qty: 20 0RF benzonatate 100 mg capsule 100 mg PO BID PRN (Reason: cough) 7 Days Qty: 14 0RF albuterol sulfate 90 mcg/actuation HFA aerosol inhaler 1 inh inhalation QID PRN (Reason: shortness of breath or wheezing) Qty: 8.5 0RF Discharge Date/Time: 10/16/25 18:43 Print Language: Sudanese
[2025-10-16 15:52] LABS: MANUAL DIFF FLAG NO
[2025-10-16 15:53] LABS: Hematocrit 37.0 % (37.0-47.0); Hemoglobin 12.4 g/dl (12.0-16.0); Imm Gran Abs Auto 0.05 X10*3/uL (0.00-0.03); Imm Gran Pct Auto 0.4 % (0.0-0.4); Lymphocytes Absolute Auto 4.1 X10*3/uL (1.2-4.9); Mean Corpuscular HGB Conc 33.5 g/dl (31.0-35.0); Mean Corpuscular Hemoglobin 29.7 pg (27.0-33.0); Mean Corpuscular Volume 88.7 fL (80.0-98.0); NRBC Abs Auto 0.000 X10*3/uL (0.0-0.012); NRBC Pct Auto 0.0 /100WBC (0.0-0.2); Platelet Count 288 X10*3/uL (160-400); Red Blood Count 4.17 X10*6/uL (4.20-5.50); White Blood Count 12.0 X10*3/uL (4.8-10.8)
[2025-10-16 16:09] LABS: Alanine Aminotransferase 16 U/L (0-31); Albumin Level 4.5 g/dL (3.5-5.0); Alkaline Phosphatase 72 U/L (39-117); Anion Gap 12 (12-20); Aspartate Amino Transferase 17 U/L (5-31); Blood Urea Nitrogen 14 mg/dL (9-16); Calcium 9.4 mg/dL (8.4-10.2); Carbon Dioxide 28 mmol/L (22-29); Chloride 105 mmol/L (96-108); Creatinine Clr Calc Pharmacy 120.8; Estimated Glomerular Filt Rate > 60; Magnesium 2.0 mg/dL (1.6-2.6); Potassium 3.9 mmol/L (3.3-5.1); Sodium 141 mmol/L (135-145); Total Protein 7.4 g/dL (6.5-8.0)
[2025-10-16 16:16] LABS: Troponin-I High Sensitivity < 2.7 ng/L (<3.5-17.0)
[2025-10-16 17:17] LABS: Resp Syncy Virus RNA Qual PCR NEGATIVE (Negative); SARS COV2 PCR INHOUSE NEGATIVE (Negative)
--- NOTE | 2025-10-16 18:39 | PC.NURSE ---
seen and discharged by PIT
--- OUTSIDE RECORDS SUMMARY | 2025-10-16 22:45 | XMS_ITS | Encounter Summary ---
Author Organization [facility] Address [address] [place] [address] Care Team Providers Care Tar Boiler Name Role Phone Ivy Mattson MD Primary Care Prov ider Encounter Details Date Type Department Care Team (Late st Contact Info) Description 09/08/2025 Results Follow-Up Endocrinology - [address] [id number] [place] [phone] Jordana Burton PA [address] [place] [address] Social History Tobacco Use Types Packs/Day Years Used Date Smoking Tobacco: Never Smokeless Tobacco: Never Alcohol Use Standard Drinks/Week Comments Yes 0 (1 standard drink = 0.6 oz pur e alcohol) Housing Instability Answer Date Recorde d Are you worried that in the next 2 months you may not have stable housing? Unable to respond 09/16/2024 Food Access & Nutrition Answer Date Rec orded Do you have access to a vari ety of food including fruits and vegetables? Unable to respond 09/16/2024 Health Literacy Answer Date Recorded How often do you need to hav e someone help you when you read instructions, pamphlets, or other written material from your doctor or pharmacy? Unable to respond 09/16/2024 Caregiver: How often do you need to have someone help you when you read instructions, pamphlets, or other written material from your doctor or pharmacy? Not on file 11/15/2 024 Financial Risk Answer Date Recorded How hard is it for you to pa y for the very basics like food, housing, medical care, and air conditioning / heating? Unable to respond 09/16/2024 Transportation Answer Date Recorded Has the lack of transportati on kept you from meetings, work, or from getting things needed for daily living? Unable to respond 09/16/2024 Has the lack of transportati on kept you from medical appointments or from getting medications? Unable to respond 09/16/2024 Social Isolation Answer Date Recorded How often do you feel lonely or isolated from those around you? Unable to respond 09/16/2024 Food Risk Answer Date Recorded Within the past 12 months we worried whether our food would run out before we got money to buy more. Unable to respond 024 Within the past 12 months th e food we bought just didn't last and we didn't have money to get more. Unable to respond 09/02 Dependent Care Answer Date Recorded Do you need help finding or paying for care for your loved ones. For example, child development assistant or elderly care for an older adult? Unable to respond 09/16/2024 Education Answer Date Recorded Do you think completing more education or training, like finishing a GED, going to college, or learning a trade, would be helpful for you? Unable to respond 09/16/2024 Employment and Income Answer Date Recor ded During the last four weeks, have you been actively looking for work? Unable to respond 09/16/2024 Living Situation Answer Date Recorded What is your living situation? Unrecognized valu e 09/16/2024 Comments No Sex and Gender Information Value Date Recorded Sex Assigned at Female 12/14/2024 12:14 PM EST Legal Sex Female 4:56 PM EST Gender Identity Female 12/14/2024 12:14 PM EST Sexual Orientation Straight 12/14/2024 12 :14 PM EST documented as of this encounter Plan of Treatment Upcoming Encounters Date Type Department Care Team (Late st Contact Info) Description 11/21/2025 1:15 PM EST Office Visit Adult Medicine [address] [phone] Jessica Combs, AMANDA [address] [place], [place] 11/23/2025 9:30 AM EST Office Visit Gastroenterology - [address] [phone] Bailee Dominguez PA [address] [address] 04/04/2026 9:30 AM EDT Office Visit Endocrinology [address] [phone] Jordana Burton PA [address] [place] [address] 04/12/2026 2:00 PM EDT Office Visit Adult Medicine [address] [phone] Ivy Mattson MD [address] [place] [address] documented as of this encounter Visit Diagnoses Not on filedocumented in this encounter Additional Health Concerns Assessment Noted Time PHQ-9 Depression Total Score: 0 09/07/20 25 9:31 AM EST documented as of this encounter Care Teams Tar Boiler Relationship Specialty Start Date End Date Ivy Mattson MD [address] [place] [address] PCP - General Internal Medicine 06/02/22 documented as of this encounter
--- OUTSIDE RECORDS SUMMARY | 2025-10-16 22:46 | XMS_ITS | Clinical Summary ---
Author Organization [facility] Building Address [address] [place] [phone] Phone Care Team Providers Care Crew Person Name Role Phone Ivy Mattson MD Primary Care Prov ider Allergies No known active allergies Medications acetaminophen (TYLENOL) 500 mg tablet Take 1 Tab by mouth every 6 hours as needed for Pain for up to 10 days. 07/24/20 Active buPROPion XL (WELLBUTRIN XL) 150 mg 24 hr tablet TOME CHALO TABLETA TODOS LOS D 02/11/20 24 Active citalopram (CeleXA) 20 mg tablet Take 1 Tab by mouth daily. Active FREESTYLE LANCETS MISC Use to test blood sugar once daily. 01/22/20 24 Active blood sugar diagnostic (FreeStyle Lite Strips) test strip USE TO TEST ONCE DAILY 07/18/20 24 Active blood-glucose meter kit 1 Device by Does not apply route daily for 360 days. E11.49 08/14/20 22 Active lidocaine (LIDODERM) 5 % patch Place 1 Patch onto the skin every 24 hours. Apply for no more than 12 hours in any 24 hour period. 08/09/20 24 Active traZODone (DESYREL) 100 mg tablet Take 1 Tab by mouth at bedtime. Active nystatin (MYCOSTATIN) 100,000 unit/gram powder Apply to rash 2x/day for 2 weeks 15 g 1 03/02/20 25 Active albuterol HFA (PROAIR HFA ; PROVENTIL HFA ; VENTOLIN HFA) 90 mcg/actuation inhaler Inhale 2 Puffs into the lungs every 4 hours as needed for Cough or Wheezing. 6.7 g 2 03/06/20 25 Active cetirizine (ZyrTEC) 10 mg tablet Take 1 tablet (10 mg total) by mouth 1 (one) time each day. 90 each 3 03/06/20 25 Active triamcinolone (KENALOG) 0.1 % cream APPLY TO AFFECTED AREA 1-2 TIMES DAILY NEEDED. 30 g 1 04/10/20 25 Active ipratropium (ATROVENT) 21 mcg (0.03 %) nasal spray Administer 2 sprays into each nostril every 12 (twelve) hours. 30 mL 3 04/14/20 25 026 Active diphenhydrAMINE (Benadryl Allergy) 25 mg tablet Take 1 tablet (25 mg total) by mouth at bedtime as needed for allergies. 30 tablet 04/14/20 25 Active fluticasone propionate (FLONASE) 50 mcg/actuation nasal spray SHAKE GENTLY. BEFORE FIRST USE, PRIME PUMP. AFTER USE, CLEAN TIP AND REPLACE CAP. 48 mL 1 06/05/20 25 Active metFORMIN XR (GLUCOPHAGE-XR) 500 mg 24 hr tablet TAKE 1 TABLET BY MOUTH 1 TIMES DAILY (WITH MEALS). 90 tablet 1 07/27/20 25 Active guanFACINE (INTUNIV) 1 mg 24 Hour ER tablet Take 1 tablet (1 mg total) by mouth 1 (one) time each day. 07/12/20 25 Active semaglutide (Ozempic) 2 mg/dose (8 mg/3 mL) injection penIndications:T ype 2 diabetes mellitus in patient with obesity ([facility] V24, [facility] V28) INYECTE 2 MG INTO THE SKIN EVERY 7 DAYS 9 mL 3 08/04/20 25 Active lisinopriL (PRINIVIL,ZESTRI L) 10 mg tablet Take 1 tablet (10 mg total) by mouth 1 (one) time each day. Take 1 Tablet by mouth daily for 180 days. - Oral 90 each 3 09/07/20 25 026 Active cyclobenzaprine (FLEXERIL) 5 mg tabletIndication s:Essential hypertension Take 1 tablet (5 mg total) by mouth 2 (two) times a day if needed for muscle spasms. 20 tablet 09/07/20 25 Active atorvastatin (LIPITOR) 40 mg tablet Take 1 tablet (40 mg total) by mouth 1 (one) time each day. 30 each 11 09/08/20 25 026 Active acyclovir (ZOVIRAX) 400 mg tablet TAKE 1 TABLET (400 MG TOTAL) BY MOUTH 2 TIMES A DAY 180 tablet 3 09/22/20 25 Active acyclovir (ZOVIRAX) 400 mg tablet Take 1 tablet (400 mg total) by mouth 2 (two) times a day. 180 each 3 10/17/20 24 025 Discontinued Active Problems Problem Noted Date Diagnosed Date Chest pain 09/07/2025 Type 2 diabetes mellitus with obesity 08/14/2022 Overview (08/02/2025): 08/02/25 Regulatory IMO Update Assessment & Plan (09/07/2025 11:04 AM EST): Diabetes is well-controlled on Ozempic 2 mg a week. She will discuss with endo if continuing Metformin or not. Last A1c was 5.7. Continue Ozempic. Encouraged to keep the appointments with the specialist. Orders: Comprehensive metabolic panel; Future Lipid panel with reflex to direct LDL; Future Assessment & Plan (03/06/2025 10:13 AM EDT): Diabetes is well-controlled on Ozempic. She is currently on 2 mg a week. She follows regularly with endocrinology. Last A1c was 5.8. Will continue the medication. Encouraged to keep the appointments with the specialist. Essential hypertension 11/08/2021 Assessment & Plan (09/07/2025 9:51 AM EST): Blood pressure is well-controlled. Today 131/79. She is currently on lisinopril 10 mg a day. Will continue same medication. Encouraged to follow a low-salt diet and exercise regularly. Orders: cyclobenzaprine (FLEXERIL) 5 mg tablet; Take 1 tablet (5 mg total) by mouth 2 (two) times a day if needed for muscle spasms. Assessment & Plan (03/06/2025 10:13 AM EDT): Blood pressure is well-controlled. Today recheck 120/85. She is currently on lisinopril 10 mg a day. Will continue same medication. Encouraged to follow a low-salt diet and exercise regularly. Gallstones 01/26/2020 Endometriosis 01/12/2020 Overview (08/24/2024): Initially found as tumors at the vaginal canal, had biopsy through [facility] in 2017. Now status post partial hysterectomy, still has cervix. Hyperlipidemia 06/18/2017 Assessment & Plan (09/07/2025 11:04 AM EST): Last lipid panel 112. On Atorvastatin 20mg. Will recheck a new lipid panel today. Assessment & Plan (03/06/2025 10:13 AM EDT): On pending to repeat a lipid panel atorvastatin 20 mg. In a metabolic panel. She will go to the lab today. Genital herpes 06/07/2012 Varicose veins of both lower extremities 011 Allergic rhinitis 06/24/2010 Depression 11/06/2009 Overview (08/24/2024): F/u Luc Obesity 11/06/2009 Encounters Date Type Department Care Team Description 09/08/2025 9:20 AM EST Office Visit [facility] [place] [address] [facility] [address] [place] [id number] Jose Ramon Kaur MD Other chest pain (Primary Dx); Mixed hyperlipidemia; Type 2 diabetes mellitus with obesity; Essential hypertension 09/08/2025 Results Follow-Up Endocrinology - [address] [phone] Jordana Burton PA 09/07/2025 10:05 AM EST Lab Draw Station - [address] Type 2 diabetes mellitus with obesity 09/07/2025 9:30 AM EST Office Visit [facility] - [address] [phone] Ivy Donovan MD Type 2 diabetes mellitus with obesity (Primary Dx); Essential hypertension; Mixed hyperlipidemia; Screening for depression 08/04/2025 9:30 AM EDT Office Visit Endocrinology - [address] [phone] Jordana Burton PA Type 2 diabetes mellitus with obesity (Primary Dx); Essential hypertension; Mixed hyperlipidemia from Last 3 Months Immunizations Immunization Administration Dates Next Due Hepatitis A-Hepatitis B Adul t (Twinrix) 18yo and older 03/01/2012,07/21/2011,06/18/2011 Influenza trivalent, 0.5mL, preservative free (Fluarix; FluLaval; Fluzone) ages 6mo and older (Afluria) 3 years and older 11/25/2013,12/08/2012,08/01/2011,2009 Influenza trivalent, with preservative (Fluzone; Afluria) 6mo and older 11/25/2013,08/01/2011,07/31/2010 PPD Test 07/16/2015 Pneumococcal conjugate 20 va lent (Prevnar 20, PCV 20) 2mo and older 03/06/2025 Td Tetanus diptheria (Tdvax) 7yo and older 08/08/2022 Tdap Tetanus diptheria acell ular pertussis (Boostrix; Adacel) 7yo and older 04/08/2011 Surgical History Surgery Date Site/Laterality Comments OTHER SURGICAL HISTORY 08/30/2017 PROCEDURE: HISTORICAL SUPRACERVICAL HYSTERECTOMY W/O BSO; COMMENT: for endometriosis? SECTION PROCEDURE: [place] DELIVERY ONLY SALPINGOOPHORECTOMY 07/2017 Bilateral PROCEDURE: [place] LAPAROSCOPY W/RMVL ADNEXAL STRUCTURES HYSTERECTOMY PROCEDURE: HISTORICAL HYSTERECTOMY COLONOSCOPY 07/10/2022 PROCEDURE: HISTORICAL COLONOSCOPY; COMMENT: tight angle at rectosigmoid jxn otherwise normal. CHOLECYSTECTOMY 06/04/2024 PROCEDURE: HISTORICAL CHOLECYSTECTOMY; COMMENT: Laparoscopic cholecystectomy at [facility] Medical History Medical History Date Comments Allergic rhinitis DX:Allergic rh initis Hyperlipidemia 06/18/2017 DX:Hyperlipidemi a Anemia DX:Anemia Anxiety state DX:Anxiety state Asthma DX:Asthma Disorder of liver DX:Disorder of liver Venereal disease 10/22/2015 DX:Venereal dis ease; COMMENT: + Hep C Vagina neoplasm DX:Vagina neopla sm Axillary mass, left 07/21/2019 DX:Axillary mass, left HSV-2 (herpes simplex virus 2) infection 2011 DX:HSV-2 (herpes simplex vir us 2) infection Essential hypertension 11/08/2021 DX:Essent ial hypertension New onset type 2 diabetes me llitus (CMS/HCC V24, CMS/HCC V28) 08/14/2022 DX:New onset type 2 diabete s mellitus (HCC) Diabetes 1.5, managed as typ e 2 (CMS/HCC V24, CMS/HCC V28) DX:Diabetes 1.5, managed as type 2 (HCC) Fatty liver DX:Fatty liver History of hepatitis C DX:Histor y of hepatitis C Family History Medical History Relation Name Comments Breast cancer Aunt 1 4 mat Breast cancer Aunt 2 maternal aunt Breast cancer Aunt 3 Maternal aunt Diabetes Father and HTN at 52 Lung cancer Father Throat cancer Father Other: suicide Father's side Uncle, decea sed suicide Hypertension Maternal Grandfather asthma Other: heart disease Maternal Grandmother Other: Bone cancer Paternal Grandfather Diabetes Paternal Grandmother asthma, HTN alive at 82 2013 Cervical cancer Neg Hx Colon cancer Neg Hx Ovarian cancer Neg Hx Prostate cancer Neg Hx Relation Name Status Comments Aunt 1 4 mat Alive Aunt 2 Aunt 3 Aunt 4 Alive breast CA Aunt 5 Alive breast CA Daughter Alive Father Alive DM Father's side Maternal Grandfather Maternal Grandmother Mother 60 Alive HTN Paternal Grandfather Paternal Grandmother Sister Alive Son Alive Social History Tobacco Use Types Packs/Day Years Used Date Smoking Tobacco: Never Smokeless Tobacco: Never Tobacco Cessation:Counseling Given: Not Answered Alcohol Use Standard Drinks/Week Comments Yes 0 [...] your doctor or pharmacy? Not on file Financial Risk Answer Date Recorded How hard [...] money to buy more. Unable to respond Within the past 12 months th e food we bought just didn't last and we didn't have money to get more. Unable to respond 09/02 Dependent Care Answer Date Recorded Do you need help finding or paying for care for your loved ones. For example, child daycare worker or elderly care for an older adult? [...] Orientation Straight 12/14/2024 12 :14 PM EST Obstetrics History Para Term AB IAB SAB Ectopic Multiple Livin g Live Births 4 3 2 1 1 2 2 Date Outcome GA Total Labor Labor/2nd/3rd Weight Sex Type Anes PTL Shaina A1 A5 Name Clin Term SAB 1994 Ectopic 997 Term 40w 0d 3629 g (128 oz) F Vag-S pont N Livin g Complications:None Delivery Location:[place] 005 26w 0d 454 g (16 oz) M CS-Un spec Epidur al Y Livin g Complications:Placenta Previ a Delivery Location:[place] Last Filed Vital Signs Vital Sign Reading Time Taken Comments Blood Pressure 122/80 09/08/2025 8:52 AM EST Pulse 76 09/08/2025 8:52 AM EST Temperature 35.7 C (96.3 F) 09/07/2025 9:28 AM EST Respiratory Rate 14 09/07/2025 9:28 AM EST Oxygen Saturation 95% 09/08/2025 8:52 AM EST Inhaled Oxygen Concentration - - Weight 83 kg (183 lb) 09/08/2025 8:52 AM EST Height 160 cm (5' 3 ) 09/08/2025 8:52 AM EST Body Mass Index 32.42 09/08/2025 8:52 AM EST Plan of Treatment Upcoming Encounters Date Type Department Care Team (Late st Contact Info) Description 11/21/2025 1:15 PM EST Office Visit Adult Medicine [address] [phone] Jessica Combs PA [address] [place], [place] 11/23/2025 9:30 AM EST Office Visit Gastroenterology - [address] [phone] Bailee Dominguez PA [address] [phone] 04/04/2026 9:30 AM EDT Office Visit Endocrinology [address] [phone] Jordana Burton PA [address] [place] [address] 04/12/2026 2:00 PM EDT Office Visit Adult Medicine [facility] [address] [place] [address] Ivy Mattson MD [address] [place], [place] Health Maintenance Due Date Last Done Comments Medicare Annual Wellness Visit 10/11/2022 Zoster Vaccines (1 of 2) 2024 COVID-19 Vaccine ( season) 2025 01/22/2022, 04/29/2021, 03/21/2021 Social Influencers of Health Screening 09/16/2025 09/16/2024 Breast Cancer Screening 12/28/2025 12/28/19, 12/01/2023, 11/26/2022, Additional history exists Diabetes: Annual Urine Albumin-Creatinine Ratio (uACR) 03/06/2026 03/06/2025, 01/29/2024 Diabetes: Annual Foot Exam 03/06/2026 03/06/2025, Diabetes: Blood Sugar Control Test (HGBA1C) 03/07/2026 09/07/2025, 03/06/2025, 08/17/2024, Additional history exists Diabetes: Annual Retina Eye Exam 04/11/2026 04/11/2025 Influenza Vaccine (#1) 2026 4, 11/25/2013, 12/08/2012, Additional history exists Postponed from 07/03/2025 (Patient Refused) Diabetes: Annual GFR (Glomerular Filtration Rate) 09/07/2026 09/07/2025, 05/23/2025, 03/06/2025, Additional history exists Hypertension/CHF/CAD Annual BMP Blood Test 09/07/2026 09/07/2025, 05/23/2025, 03/06/2025, Additional history exists Cholesterol Screening (Lipid Panel) 09/07/2030 09/07/2025, 03/06/2025, 08/17/2024, Additional history exists Colorectal Cancer Screening: Colonoscopy 07/10/2032 07/10/2022, 07/10/2022 DTaP,Tdap,and Td Vaccines (3 - Td or Tdap) 08/08/2032 08/08/2022, 04/08/2011 RSV Immunization Adult Patients (1 - 1-dose 75+ series) 2049 Hepatitis A Vaccines Aged Out 03/01/2012, 07/21/2011, 06/18/2011 No longer eligible based on patient's age to complete this topic Hepatitis B Vaccines Completed 03/01/2012, 07/21/2011, 06/18/2011 HIV Screening Completed 11/25/2021 Pneumococcal Vaccine: 50+ Years Completed 03/06/2025 Hepatitis C Screening Completed 05/23/2025, 021 Depression Screening Completed 09/07/2025, 01/11/20 HIB Vaccines Aged Out No longer eligi ble based on patient's age to complete this topic HPV Vaccines Aged Out No longer eligi ble based on patient's age to complete this topic IPV Vaccines Aged Out No longer eligi ble based on patient's age to complete this topic MMR Vaccines Aged Out No longer eligi ble based on patient's age to complete this topic Meningococcal ACWY Vaccine Aged Out N o longer eligible based on patient's age to complete this topic Meningococcal B Vaccine Aged Out No l onger eligible based on patient's age to complete this topic RSV Immunization Patients Under 20 months Aged Out No longer eligible based on patient's age to complete this topic Varicella Vaccines Aged Out No longer eligible based on patient's age to complete this topic Procedures Procedure Name Priority Date/Time Associated Diagnosis Comments HEMOGLOBIN A1C Routine 09/07/2025 10:05 AM EST Type 2 diabetes mellitus with obesity COMPREHENSIVE METABOLIC PANEL Routine 09/07/2025 10:05 AM EST Type 2 diabetes mellitus with obesity LIPID PANEL WITH REFLEX TO DIRECT LDL Routine 09/07/2025 10:05 AM EST Type 2 diabetes mellitus with obesity POC GLUCOSE Routine 08/04/2025 9:38 AM EDT Type 2 diabetes mellitus with obesity HEPATITIS C VIRUS QUANTITATIVE PCR Routine 05/23/2025 9:32 AM EDT Metabolic dysfunction-associ ated steatotic liver MICROALBUMIN CREATININE URINE RATIO Routine 03/06/2025 10:26 AM EDT Type 2 diabetes mellitus with obesity (CMS/HCC V24, CMS/HCC V28) MG MAMMO DIGITAL SCREENING W RC BILAT Routine 12/28/2024 9:01 AM EST Encounter for screening mammogram for breast cancer DEPRESSION SCREENING Routine 01/11/2024 DIABETES FOOT EXAM Routine 01/11/2024 COLONOSCOPY Routine 07/10/2022 HIV SCREENING Routine 11/25/2021 from Last 3 Months or Most Recently Relevant to Health Maintenance Results * (ABNORMAL) Lipid panel with reflex to direct LDL (09/07/2025 10:05 AM EST) Cholesterol 181 0 - 200 mg/dL LAB CHEMISTRY METHOD 09/07/2025 1:35 PM [facility] Triglycerides 124 0 - 150 mg/dL LAB CHEMISTRY METHOD 09/07/2025 1:35 PM [facility] HDL 51 >=40 mg/dL LAB CHEMISTRY METHOD 09/07/2025 1:35 PM [facility] LDL Calculated 105(H) 0 - 100 mg/dL LAB CHEMISTRY METHOD 09/07/2025 1:35 PM [facility] Comment:Estimated LDL Calcul ated using equation: Total cholesterol - HDL cholesterol - (Triglycerides/5) VLDL Cholesterol Abdoulaye 24.8 mg/dL LAB CHEMISTRY METHOD 09/07/2025 1:35 PM [facility] Non HDL Chol. (LDL+VLDL) 130 <145 mg/dL LAB CHEMISTRY METHOD 09/07/2025 1:35 PM [facility] Chol/HDL Ratio 3.5 0.0 - 4.4 LAB CHEMISTRY METHOD 09/07/2025 1:35 PM EST [facility] Blood Venous blood specimen / Unknown Venipuncture / Unknown 09/07/2025 10:05 AM EST 09/07/2025 10:05 AM EST Ivy Mtatson MD LAB BLOOD ORDERABL ES Final Result Performing Organization Address City/[facility]/ZIP Co de Phone Number [facility] [address] [place] [address], [place] [phone] * Hemoglobin A1c (09/07/2025 10:05 AM EST) Hemoglobin A1C 5.6 <6.5 % LAB CHEMISTRY METHOD 09/07/2025 10:31 PM [facility] Mean Bld Glu Estim. 114 mg/dL LAB CHEMISTRY METHOD 09/07/2025 10:31 PM [facility] Blood Venous blood specimen / Unknown Venipuncture / Unknown 09/07/2025 10:05 AM EST 09/07/2025 10:05 AM EST Jordana PATEL LAB BLOOD ORDERABLES Final Result Performing Organization Address [facility]/ZIP Co de Phone Number [facility] [address] [place] [address], [place] [phone] * Comprehensive metabolic panel (09/07/2025 10:05 AM EST) Sodium 140 133 - 145 mmol/L LAB CHEMISTRY METHOD 09/07/2025 1:34 PM EST [facility] Potassium 4.3 3.5 - 5.5 mmol/L LAB CHEMISTRY METHOD 09/07/2025 1:34 PM [facility] Chloride 109 96 - 110 mmol/L LAB CHEMISTRY METHOD 09/07/2025 1:34 PM EST [facility] CO2 27 21 - 32 mmol/L LAB CHEMISTRY METHOD 09/07/2025 1:34 PM [facility] Anion Gap 4 3 - 11 LAB CHEMISTRY METHOD 09/07/2025 1:34 PM [facility] Glucose 95 70 - 100 mg/dL LAB CHEMISTRY METHOD 09/07/2025 1:34 PM [facility] BUN 17 5 - 25 mg/dL LAB CHEMISTRY METHOD 09/07/2025 1:34 PM [facility] Creatinine 0.67 0.50 - 1.10 mg/dL LAB CHEMISTRY METHOD 09/07/2025 1:34 PM [facility] eGFR 106 >=60 mL/min/1. 73m2 LAB CHEMISTRY METHOD 09/07/2025 1:34 PM [facility] Comment:Calculation based on the Chronic Kidney Disease Epidemiology Collaboration (CKD-EPI) equation refit without adjustment for race. BUN/Creatinine Ratio 25.4 LAB CHEMISTRY METHOD 09/07/2025 1:34 PM [facility] Calcium 8.8 8.5 - 10.5 mg/dL LAB CHEMISTRY METHOD 09/07/2025 1:34 PM [facility] AST (SGOT) 13 10 - 42 unit/L LAB CHEMISTRY METHOD 09/07/2025 1:34 PM [facility] ALT (SGPT) 23 10 - 60 unit/L LAB CHEMISTRY METHOD 09/07/2025 1:34 PM [facility] Alkaline Phosphatase 72 42 - 121 unit/L LAB CHEMISTRY METHOD 09/07/2025 1:34 PM [facility] Total Protein 7.2 6.0 - 8.0 g/dL LAB CHEMISTRY METHOD 09/07/2025 1:34 PM [facility] Albumin 4.0 3.2 - 5.0 g/dL LAB CHEMISTRY METHOD 09/07/2025 1:34 PM [facility] Total Bilirubin 0.6 0.0 - 1.4 mg/dL LAB CHEMISTRY METHOD 09/07/2025 1:34 PM EST [facility] Blood Venous blood specimen / Unknown Venipuncture / Unknown 09/07/2025 10:05 AM EST 09/07/2025 10:05 AM EST Ivy Mattson MD LAB BLOOD ORDERABL ES Final Result Performing Organization Address City/[facility]/ZIP Co de Phone Number [facility] [address] [place] [address], [place] [phone] * POC glucose manually resulted (08/04/2025 9:38 AM EDT) Pathologist [facility] Glucose POC 115 mg/dL Blood Capillary blood specimen / Unknown 08/04/2025 9:38 AM EDT Jordana PATEL POINT OF CARE TEST ENTER/ED IT ORDERABLES Final Result * Hepatitis C virus quantitative molecular study (05/23/2025 9:32 AM EDT) Pathologist [facility] HCV Qual Interp Not Detected Not Detected LAB MOLECULAR DIAGNOSTICS METHOD 05/23/2025 12:37 PM EDT [facility] Comment:HCV RNA not detected , unable to report quantitative results. Blood Venous blood specimen / Unknown Venipuncture / Unknown 05/23/2025 9:32 AM EDT 05/23/2025 9:32 AM EDT us Bailee PATEL LAB BLOOD ORDERABLES Final Re sult [facility] [address] [place] [address], [place] [phone] * (ABNORMAL) Microalbumin creatinine urine ratio (03/06/2025 10:26 AM EDT) Creatinine, Urine 315.0 mg/dL LAB CHEMISTRY METHOD 03/06/2025 1:15 PM EDT [facility] Microalb, Ur 86.3(H) 0.0 - 29.0 mg/L LAB CHEMISTRY METHOD 03/06/2025 1:15 PM EDT [facility] Microalb/Crea t Ratio 27 <30 mg/g creat LAB CHEMISTRY METHOD 03/06/2025 1:15 PM EDT [facility] Urine Urine specimen from urethra / Unknown Non-blood Collection / Unknown 03/06/2025 10:26 AM EDT 03/06/2025 10:26 AM EDT us Jordana PATEL LAB URINE ORDERABLES Final Result [facility] [address] [place] [address], [place] [phone] * MG Mammo Digital Screening w Rc bilat (12/28/2024 9:01 AM EST) Anatomical Region Laterality Modality Breast Bilateral Mammography 12/28/2024 4:05 PM EST Impressions 12/28/2024 4:11 PM EST No mammographic evidence of malignancy. No suspicious interval change. A negative mammogram in the presence of a clinically suspicious palpable abnormality does not preclude the possibility of malignancy or alter the indications for biopsy. ASSESSMENT: BI-RADS 1: NEGATIVE RECOMMENDATION(S): 1: Routine screening mammogram BILATERAL in 1 year. -------- FINAL REPORT -------- Dictated By: Edward Manley Dictated Date: 12/28/2024 16:05 ET Assigned Physician: Edward Manley Reviewed and Electronically Signed By: Edward Manley Signed Date: 12/28/2024 16:11 ET Workstation ID: [id number] Transcribed By: Self Edit Transcribed Date: 12/28/2024 16:05 ET Narrative 12/28/2024 4:11 PM EST EXAM: SCREENING MAMMOGRAPHY, BILATERAL HISTORY: SCREENING. Family history of breast cancer, multiple aunts COMPARISON: 12/01/2023, 11/26/2022, 11/25/2021 TECHNIQUE: Synthesized CC and MLO projections of each breast. Tomosynthesis of each breast in the CC and MLO projections. ADDITIONAL IMAGING: None Computer-aided detection was employed with the [employer] AI 3-D. TISSUE DENSITY: There are scattered areas of fibroglandular density. (BI-RADS category B) FINDINGS: RIGHT BREAST: No suspicious mass. No suspicious calcification. No distortion. No additional suspicious right breast findings LEFT BREAST: No suspicious mass. No suspicious calcification. No distortion. There is a stable focal asymmetry in the outer left breast. Procedure Note Edwadr Manley MD - 12/28/2024 EXAM: SCREENING MAMMOGRAPHY, BILATERAL HISTORY: SCREENING. Family history of breast cancer, multiple aunts COMPARISON: 12/01/2023, 11/26/2022, 11/25/2021 TECHNIQUE: Synthesized CC and MLO projections of each breast.Tomosynthesis of each breast in the CC and MLO projections. ADDITIONAL IMAGING: None Computer-aided detection was employed with the [employer] profound AI 3-D. TISSUE DENSITY: There are scattered areas of fibroglandular density.(BI-RADS category B) FINDINGS: RIGHT BREAST: No suspicious mass. No suspicious calcification. No distortion. Noadditional suspicious right breast findings LEFT BREAST: No suspicious mass. No suspicious calcification. No distortion. There harvey stable focal asymmetry in the outer left breast. IMPRESSION: No mammographic evidence of malignancy. No suspicious interval change. A negative mammogram in the presence of a clinically suspicious palpableabnormality does not preclude the possibility of malignancy or alter theindications for biopsy. ASSESSMENT: BI-RADS 1: NEGATIVE RECOMMENDATION(S): 1: Routine screening mammogram BILATERAL in 1 year. -------- FINAL REPORT -------- Dictated By: Edward Manley Dictated Date: 12/28/2024 16:05 ET Assigned Physician: Edward Manley Reviewed and Electronically Signed By: Edward Manley Signed Date: 12/28/2024 16:11 ET Workstation ID: [id number] Transcribed By: Self Edit Transcribed Date: 12/28/2024 16:05 ET us Self Referral [facility] IMG BI PROCEDURES Final Resu lt * Hm Depression Screening (01/11/2024) Depression Screening Abstracted Historical Provider HEALTH MAINTENANCE Final Result * Diabetes Foot Exam (01/11/2024) Pathologist [facility] Diabetes: Annual Foot Exam Abstracted Historical Provider HEALTH MAINTENANCE Final Result * Colonoscopy (07/10/2022) Pathologist [facility] Colonoscopy No Interpretation , Abstracted Anatomical Region Laterality Modality Other Historical Provider HEALTH MAINTENANCE Final Result * HIV Screening (11/25/2021) [facility] HIV Screening Abstracted [facility] Provider HEALTH MAINTENANCE Final Result from Last 3 Months or Most Recently Relevant to Health [place] [address] [address] [employer] MEDICARE Member Subscriber Plan / Payer (Ef fective 2019-Present) Name:Holman RitchieRadha gomes Relation to Subscriber:Self Name:Radha Gonzales Payer ID:[id number] Group ID:[id number] Type:Not on file Address: [place] [address] [address] [id number] Care Teams Crew Person Relationship Specialty Start Date End Date Ivy Mattson MD [address] [place] [address] PCP - General Internal Medicine 06/02/22
== END 2025-10-16 18:43 | disposition home or self-care (01) ==
PROVIDERS: Physician Assistant Medical; Emergency Provider Emergency Medicine; PCP Internal Medicine
DX: J40 Bronchitis, not specified as acute or chronic (principal); R05.9 Cough, unspecified; R07.9 Chest pain, unspecified; Z03.818 Encounter for observation for suspected exposure to other biological agents ruled out; E11.9 Type 2 diabetes mellitus without complications; Z79.51 Long term (current) use of inhaled steroids
CPT/HCPCS: 71046; 80053; 83735; 84484; 85025; 87637; 93005; 99283

== ENCOUNTER → 2025-10-16 15:04 | Outpatient (BNV) | payer OTHER, SELFPAY | PROVIDERS: Emergency Provider Emergency Medicine; PCP Internal Medicine; Visit Provider Internal Medicine Cardiovascular Disease | DX: R07.9 Chest pain, unspecified (principal) | CPT/HCPCS: 93010 ==

== ENCOUNTER → 2025-10-16 15:25 | Outpatient (BNV) | payer OTHER, SELFPAY | PROVIDERS: PCP Internal Medicine; Visit Provider Radiology Diagnostic Radiology | DX: R07.9 Chest pain, unspecified (principal) | CPT/HCPCS: 71046 ==